=== PATIENT | female | born 1985 | race Caucasian/White ===

== ENCOUNTER 2017-01-09 10:36 | Emergency (ER) | payer SELFPAY ==
[2017-01-09 11:03] VITALS: BP 134/76
--- NOTE | 2017-01-09 11:22 | UC ---
Complaint Female HPI - HPI Summary HPI Summary: low back pain and painful urination for 2 days - History Of Current Complaint Chief Complaint: UCGU Stated Complaint: KIDNEY INFECTION Time Seen by Provider: 01/09/17 11:17 Hx Obtained From: Patient Hx Last Menstrual Period: 12/25/16 ?: No Onset/Duration: Sudden Onset, Lasting Days - 2, Still Present Timing: Constant Severity Initially: Moderate Severity Currently: Moderate Character: Burning Aggravating Factor(s): Urination Alleviating Factor(s): Nothing Associated Signs And Symptoms: Positive: Negative - Allergies/Home Medications Allergies/Adverse Reactions: Allergies Allergy/AdvReac Type Severity Reaction Status Date / Time Sulfamethoxazole Allergy Intermediate Hives Verified 02/25/16 11:56 w/Trimethoprim [From Bactrim] Ciprofloxacin [From Cipro] Allergy Vomiting Verified 02/25/16 11:56 PMH/Surg Hx/FS Hx/Imm Hx Previously Healthy: Yes - Surgical History Surgical History: Yes Surgery Procedure, Year, and Place: TOOTH EXTRACTION Other Surgical History: Dad had Hep C, she has been tested and negative. - Family History Known Family History: Negative: Cardiac Disease, Hypertension, Diabetes - Social History Lives: With Family Alcohol Use: Rare Substance Use Type: None Smoking Status (MU): Light Every Day Tobacco Smoker Type: Cigarettes Amount Used/How Often: LESS THAN 1/2 PPD Length of Time of Smoking/Using Tobacco: 15 YEARS Have You Smoked in the Last Year: Yes Household Exposure Type: Cigarettes - Immunization History Most Recent Influenza Vaccination: 2012 Most Recent Tetanus Shot: UTD Most Recent Pneumonia Vaccination: none Review of Systems Constitutional: Negative Skin: Negative Eyes: Negative ENT: Negative Respiratory: Negative Cardiovascular: Negative Gastrointestinal: Negative, Abdominal Pain Genitourinary: Negative Motor: Negative Neurovascular: Negative Musculoskeletal: Negative Neurological: Negative Psychological: Negative All Other Systems Reviewed And Are Negative: Yes Physical Exam Triage Information Reviewed: Yes Appearance: Well-Appearing, No Pain Distress, Well-Nourished Vital Signs: Initial Vital Signs Temp 97.2 F 01/09/17 10:57 Pulse 78 01/09/17 10:57 Resp 17 01/09/17 10:57 BP 134/76 01/09/17 10:57 Pulse Ox 100 01/09/17 10:57 Vital Signs Reviewed: Yes Eye Exam: Normal Eyes: Positive: Conjunctiva Clear ENT Exam: Normal ENT: Positive: Normal ENT inspection, Hearing grossly normal. Negative: Nasal congestion, Nasal drainage, Trismus, Muffled/hoarse voice Dental Exam: Normal Neck exam: Normal Neck: Positive: Supple, Nontender, No Lymphadenopathy Respiratory Exam: Normal Respiratory: Positive: Chest non-tender, Lungs clear, Normal breath sounds, No respiratory distress, No accessory muscle use Cardiovascular Exam: Normal Cardiovascular: Positive: RRR, No Murmur, Pulses Normal, Brisk Capillary Refill Abdominal Exam: Normal Abdomen Description: Positive: No Organomegaly, Soft, Other: - suprapublic discomfort Bowel Sounds: Positive: Present Musculoskeletal Exam: Normal Musculoskeletal: Positive: Strength Intact, ROM Intact, No Edema Neurological Exam: Normal Neurological: Positive: Alert, Muscle Tone Normal Psychological Exam: Normal Psychological: Positive: Normal Response To Family Skin Exam: Normal Skin: Positive: rashes Diagnostics - Laboratory ABG Interpretation: UA with leuks and blood - nitrites Complaint Female Dx - Course Course Of Treatment: culture urine, keflex po bid, follow with pcp - Differential Dx/Diagnosis Differential Diagnosis/HQI/PQRI: Pelvic Inflammatory Disease, , Renal Colic, Retained Foreign Body, Urinary Tract Infection Provider Diagnoses: UTI Discharge - Discharge Plan Condition: Stable Disposition: HOME Prescriptions: Cephalexin CAP* [Keflex CAP*] 500 mg PO BID #20 cap Patient Education Materials: Phenazopyridine (By mouth), Probiotic (By mouth), Urinary Tract Infection in Women (ED) Referrals: [facility] [Outside] - 1 Week
== END 2017-01-09 11:51 | disposition home or self-care (01) ==
LOC: UCEAST 10:36
DX: N39.0 Urinary tract infection, site not specified (principal)
CPT/HCPCS: 81003; 84702; 87086; 99212; G0463

== ENCOUNTER 2017-03-24 19:42 | Emergency (ER) | payer SELFPAY ==
[2017-03-24 19:48] VITALS: BP 107/75
--- NOTE | 2017-03-24 20:17 | UC ---
Skin Complaint HPI - HPI Summary HPI Summary: 32 YEAR OLD FEMALE PRESENTS WITH COMPLAINS OF EXCORIATION OF RIGHT MIDDLE FINGER - History of Current Complaint Chief Complaint: UCSkin Time Seen by Provider: 03/24/17 20:12 Stated Complaint: RASH ON RIGHT FINGER Hx Obtained From: Patient Hx Last Menstrual Period: 03/21/17 Onset/Duration: Gradual Onset Onset Severity: Moderate Current Severity: Moderate - Allergy/Home Medications Allergies/Adverse Reactions: Allergies Allergy/AdvReac Type Severity Reaction Status Date / Time Sulfamethoxazole Allergy Intermediate Hives Verified 03/24/17 19:44 w/Trimethoprim [From Bactrim] Ciprofloxacin [From Cipro] Allergy Vomiting Verified 03/24/17 19:44 Review of Systems Constitutional: Negative Skin: Rash Eyes: Negative ENT: Negative Respiratory: Negative Cardiovascular: Negative Gastrointestinal: Negative Genitourinary: Negative Motor: Negative Neurovascular: Negative Musculoskeletal: Negative Neurological: Negative Psychological: Negative All Other Systems Reviewed And Are Negative: Yes PMH/Surg Hx/FS Hx/Imm Hx Previously Healthy: Yes - Surgical History Surgical History: Yes Surgery Procedure, Year, and Place: TOOTH EXTRACTION Other Surgical History: Dad had Hep C, she has been tested and negative. - Family History Known Family History: Negative: Cardiac Disease, Hypertension, Diabetes - Social History Alcohol Use: Rare Substance Use Type: None Smoking Status (MU): Light Every Day Tobacco Smoker Type: Cigarettes Amount Used/How Often: LESS THAN 1/2 PPD Length of Time of Smoking/Using Tobacco: 15 YEARS Have You Smoked in the Last Year: Yes Household Exposure Type: Cigarettes - Immunization History Most Recent Influenza Vaccination: 2012 Most Recent Tetanus Shot: UTD Most Recent Pneumonia Vaccination: none Physical Exam Triage Information Reviewed: Yes Vital Signs: Initial Vital Signs Temp 36.6 C 03/24/17 19:45 Pulse 80 03/24/17 19:45 Resp 17 03/24/17 19:45 BP 107/75 03/24/17 19:45 Pulse Ox 100 03/24/17 19:45 Eye Exam: Normal ENT Exam: Normal Dental Exam: Normal Neck exam: Normal Neck: Positive: 1 Respiratory Exam: Normal Cardiovascular Exam: Normal Abdominal Exam: Normal Musculoskeletal Exam: Normal Neurological Exam: Normal Psychological Exam: Normal Skin: Positive: rashes Course/Dx - Diagnoses Provider Diagnoses: RIGHT MIDDLE FINGER CONTACT DERMATITIS Discharge - Discharge Plan Condition: Stable Disposition: HOME Prescriptions: Amoxicillin/Clavulanate TAB* [Augmentin TAB 875*] 875 mg PO BID #20 tab Mupirocin 2% OINT* [Bactroban 2 % Oint*] 1 applic TOPICAL BID #1 tube Patient Education Materials: Dermatitis (ED) Referrals: No Primary Care Phys,NOPCP [Primary Care Provider] - Craisa Abernathy [Medical Doctor] -
[2017-03-24] MEDS ORDERED: Amoxicillin/Clavulanate TAB* 875 MG PO ONE (20:36)
== END 2017-03-24 20:40 | disposition home or self-care (01) ==
LOC: UCEAST 19:42
DX: L25.9 Unspecified contact dermatitis, unspecified cause (principal); Z88.3 Allergy status to other anti-infective agents; F17.210 Nicotine dependence, cigarettes, uncomplicated
CPT/HCPCS: 99212; G0463

== ENCOUNTER 2018-01-28 11:52 | Emergency (ER) | payer SELFPAY ==
[2018-01-28 12:35] VITALS: BP 128/92
--- NOTE | 2018-01-28 13:37 | UC ---
Complaint Female HPI - HPI Summary HPI Summary: 32 yo female presents with passing vaginal clots noticed this morning. She tells me that this morning she woke with lower abdominal cramping and nausea. Subsequently noticed one clump of blood clots pass through her vagina. This made her very anxious. She says that her periods are usually erratic and she is not regular. Her LMP was 7/4. Her last sexual activity was 5 days ago and unprotected. She had some mild pain and bleeding at that time. She is not on any control. Since this morning and waiting in the waiting room/exam room , pt says her abdominal pain and nausea has resolved. No hx of ovarian cyst, ectopic, or uterine abnormalities. Currently denies fever, chills, SOB, chest pain, abdominal pain, n/v/d/c, vaginal discharge. - History Of Current Complaint Chief Complaint: UCGeneralIllness Stated Complaint: ABD PAIN NAUSEA AND PERSONAL Time Seen by Provider: 01/28/18 13:37 Hx Obtained From: Patient Hx Last Menstrual Period: 01/26/18 Onset/Duration: Sudden Onset Severity Initially: Mild Severity Currently: Mild Pain Intensity: 2 Pain Scale Used: 0-10 Numeric - Allergies/Home Medications Allergies/Adverse Reactions: Allergies Allergy/AdvReac Type Severity Reaction Status Date / Time ciprofloxacin [From Cipro] Allergy trouble Verified 01/28/18 12:36 breathing sulfamethoxazole Allergy anaph Verified 01/28/18 12:36 [From Bactrim] trimethoprim [From Bactrim] Allergy anaph Verified 01/28/18 12:36 Home Medications: Home Medications NK [No Home Medications Reported] 01/28/18 [History Confirmed 01/28/18] PMH/Surg Hx/FS Hx/Imm Hx - Additional Past Medical History Additional PMH: None - Surgical History Surgical History: Yes Surgery Procedure, Year, and Place: TOOTH EXTRACTION Other Surgical History: Dad had Hep C, she has been tested and negative. - Family History Known Family History: Negative: Cardiac Disease, Hypertension, Diabetes - Social History Occupation: Employed Full-time Lives: With Family Alcohol Use: Rare Substance Use Type: None Smoking Status (MU): Light Every Day Tobacco Smoker Type: Cigarettes Amount Used/How Often: LESS THAN 1/2 PPD Length of Time of Smoking/Using Tobacco: 15 YEARS Have You Smoked in the Last Year: Yes Household Exposure Type: Cigarettes - Immunization History Most Recent Influenza Vaccination: 2012 Most Recent Tetanus Shot: UTD Most Recent Pneumonia Vaccination: none Review of Systems Constitutional: Negative Skin: Negative Respiratory: Negative Cardiovascular: Negative Gastrointestinal: Abdominal Pain Genitourinary: Abnormal Bleeding Motor: Negative Neurovascular: Negative Neurological: Negative Psychological: Negative All Other Systems Reviewed And Are Negative: Yes Physical Exam - Summary Physical Exam Summary: GENERAL: NAD. WDWN. No pain distress. SKIN: No rashes, sores, lesions, or open wounds. NECK: Supple. Nontender. No lymphadenopathy. CHEST: CTAB. No r/r/w. No accessory muscle use. Breathing comfortably and in no distress. CV: RRR. Without m/r/g. Pulses intact. Brisk cap refill. ABDOMEN: Soft. NTTP. No distention or guarding. No CVA tenderness. Bowel sounds present NEURO: Alert. CN II-XII grossly intact. PSYCH: Age appropriate behavior. Triage Information Reviewed: Yes Vital Signs: Initial Vital Signs Temp 98 F 01/28/18 12:31 Pulse 88 01/28/18 12:31 Resp 16 01/28/18 12:31 BP 128/92 01/28/18 12:31 Pulse Ox 100 01/28/18 12:31 Laboratory Tests 01/28/18 01/28/18 13:42 13:44 POC Urine Color Yellow POC Urine Clarity Slightly cloudy POC Urine pH 5.5 POC Ur Specif [place] >= 1.030 POC Urine Protein Negative POC Ur Glucose (UA) Negative POC Urine Ketones 1+ A POC Urine Blood 3+ A POC Urine Nitrite Negative POC Urine Bilirubin Negative POC Urine Urobilinogen 0.2 POC U Leukocyte Esteras Negative POC Ur Test Negative Vital Signs Reviewed: Yes Complaint Female Dx - Course Course Of Treatment: Pt declined pelvic exam. Transvaginal US: IMPRESSION: FUNCTIONAL CYST LEFT OVARY, OTHERWISE NEGATIVE. UA with blood and negative. I suspect this may be her monthly menstural cycle, but is irregular this time resulting in passage of a clot. She is followed by Dr. Skelton for OBGYN - I have advised her to schedule a follow up appointment as soon as possible. Go to ED if symptoms return or new symptoms develop. Draw for CBC and CMP. Pt was agreeable to this plan. - Differential Dx/Diagnosis Provider Diagnoses: Abnormal uterine bleeding Discharge - Sign-Out/Discharge Documenting (check all that apply): Patient Departure - Discharge Plan Condition: Stable Disposition: HOME Patient Education Materials: Dysmenorrhea (ED), Ovarian Cyst (ED) Referrals: No Primary Care Phys,NOPCP [Primary Care Provider] - Corey Skelton MD [Medical Doctor] - As Soon As Possible Additional Instructions: If you develop a fever, shortness of breath, chest pain, new or worsening symptoms - please call your PCP or go to the ED. Your blood pressure was high at todays visit. Please see your primary provider within 4 weeks for recheck and re-evaluation. 1) Please schedule a follow up with OBGYN as soon as possible - Billing Disposition and Condition Condition: STABLE Disposition: Home
--- NOTE | 2018-01-28 14:39 | RAD ---
INDICATION: Dysfunctional uterine bleeding COMPARISON: None TECHNIQUE: Longitudinal and transverse transvaginal scans of the pelvis were obtained. FINDINGS: Uterus: The uterus is normal in size. There are no focal masses. The uterus measures 7.8 x 3.6 x 4.4 cm. Endometrial thickness: The endometrial thickness is measured at 0.7 cm. . Free fluid: There is no significant free fluid . Ovaries: The ovaries are normal in size. The right ovary measures 3.3 x 1.4 x 1.7 cm. The left ovary measures 4.2 x 1.9 x 3.1 cm. There is left-sided cyst measuring 1.7 x 1.6 x 1.6 was consistent with a functional cyst. Doppler interrogation demonstrates flow to each ovary. Other: None IMPRESSION: FUNCTIONAL CYST LEFT OVARY, OTHERWISE NEGATIVE.
[2018-01-28 19:30] LABS: ABS Basophils 0.1 10^3/ul (0-0.2); ABS Eosinophils 0 10^3/ul (0-0.6); ABS Lymphocytes 1.4 10^3/ul (1.0-4.8); ABS Monocytes 0.5 10^3/ul (0-0.8); ABS Neutrophils 6.3 10^3/ul (1.5-7.7); ABS Nucleated RBC 0 10^3/ul; Eosinophil % 0.4 % (0-6); Hematocrit 42 % (35-47); Hemoglobin 14.7 g/dl (12.0-16.0); Lymphocyte % 16.3 % (25-47); Mean Corpuscular HGB Conc 35 g/dl (31-36); Mean Corpuscular Hemoglobin 31 pg (27-31); Mean Corpuscular Volume 88 fL (80-97); Nucleated Red Blood Cells % 0.3; Platelet Count 319 10^3/ul (150-450); Red Blood Count 4.83 10^6/ul (4.00-5.40); Red Cell Distribution Width 13 % (10.5-15); White Blood Count 8.3 10^3/ul (3.5-10.8)
[2018-01-28 19:44] LABS: EGFR Non-African American 100.8 (>60)
== END 2018-01-28 15:20 | disposition home or self-care (01) ==
LOC: UCEAST 11:52
DX: N93.9 Abnormal uterine and vaginal bleeding, unspecified (principal); Z32.02 Encounter for pregnancy test, result negative; Z88.1 Allergy status to other antibiotic agents; Z88.2 Allergy status to sulfonamides; F17.210 Nicotine dependence, cigarettes, uncomplicated
CPT/HCPCS: 36415; 76830; 80053; 81003; 84702; 85025; 99211; G0463

== ENCOUNTER → 2018-06-19 17:22 | Emergency (ER) | payer MEDICAID, OTHER ==
--- NOTE | 2018-06-19 17:54 | ED ---
Dizziness - HPI Summary HPI Summary: 33 year old female at 15 weeks states every time she moves quickly or stands up too quickly. She feels like she passed out. States occasionally has nausea with it. No chest pain or shortness of breath. No abdominal pain. No vaginal bleeding. No cramping. She hasn't tried taking for symptoms. States she gets a heart murmur when she is so she has a follow up with cardiology in a couple weeks. has had a normal appetite. no current dizziness. states symptoms only occur with movement. states that it is a feeling of lightheadedness and not vertigo. - History Of Current Complaint Chief Complaint: EDDizziness Stated Complaint: DIZZINESS Time Seen by Provider: 06/19/18 17:34 - Allergies/Home Medications Allergies/Adverse Reactions: Allergies Allergy/AdvReac Type Severity Reaction Status Date / Time ciprofloxacin [From Cipro] Allergy trouble Verified 06/19/18 17:33 breathing sulfamethoxazole Allergy anaph Verified 06/19/18 17:33 [From Bactrim] trimethoprim [From Bactrim] Allergy anaph Verified 06/19/18 17:33 PMH/Surg Hx/FS Hx/Imm Hx Endocrine/Hematology History: Denies: Hx Anticoagulant Therapy Cardiovascular History: Denies: Hx Myocardial Infarction - Surgical History Surgery Procedure, Year, and Place: TOOTH EXTRACTION - Immunization History Date of Tetanus Vaccine: Unknown Infectious Disease History: No Infectious Disease History: Reports: Hx Clostridium Difficile - x2, 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 Denies: Hx Hepatitis, Hx Human Immunodeficiency Virus (HIV), Hx Shingles, Hx Tuberculosis, Hx Known/Suspected VRE, Hx Known/Suspected VRSA, History Other Infectious Disease, Traveled Outside the [place] in Last 30 Days - Family History Known Family History: Negative: Cardiac Disease, Hypertension, Diabetes - Social History Alcohol Use: None Substance Use Type: Reports: None Smoking Status (MU): Light Every Day Tobacco Smoker Type: Cigarettes Amount Used/How Often: LESS THAN 1/2 PPD Length of Time of Smoking/Using Tobacco: 15 YEARS Have You Smoked in the Last Year: Yes Review of Systems Negative: Fever Negative: Chest Pain Negative: Shortness Of Breath Neurological: Other - dizziness with standing All Other Systems Reviewed And Are Negative: Yes Physical Exam Triage Information Reviewed: Yes Vital Signs On Initial Exam: Initial Vitals Temp Pulse Resp BP Pulse Ox 98.4 F 88 18 103/56 98 06/19/18 17:25 06/19/18 17:25 06/19/18 17:25 06/19/18 17:25 06/19/18 17:25 Vital Signs Reviewed: Yes Appearance: Positive: Well-Appearing Skin: Positive: Warm, Dry Head/Face: Positive: Normal Head/Face Inspection Eyes: Positive: Normal, EOMI, BANG, Conjunctiva Clear ENT: Positive: Normal ENT inspection, Pharynx normal, TMs normal Respiratory/Lung Sounds: Positive: Clear to Auscultation, Breath Sounds Present Cardiovascular: Positive: Normal, RRR Abdomen Description: Positive: Nontender, Soft Bowel Sounds: Positive: Present Musculoskeletal: Positive: Normal Neurological: Positive: Sensory/Motor Intact, Alert, Oriented to Person Place, Time, CN Intact II-III Psychiatric: Positive: Normal Diagnostics - Vital Signs Vital Signs Temp Pulse Resp BP Pulse Ox 06/19/18 17:25 98.4 F 88 18 103/56 98 - Laboratory Result Diagrams: 06/19/18 17:52 06/19/18 17:52 Lab Statement: Any lab studies that have been ordered have been reviewed, and results considered in the medical decision making process. - EKG No standard instances Cardiac Rate: NL EKG Rhythm: Sinus Rhythm Summary of EKG Findings: sinus rhythm Re-Evaluation - Re-Evaluation First Eval Re-Evaluation Time: 18:52 Comment: no symptoms, was not dizzy upon standing with orthostatic vitals, diastolic does drop by 10 so is orthostatic but is not symptomatic from it at this time Second Eval Comment: still asx Dizzy Course/Dx - Course Course Of Treatment: 33 year old female at 15 weeks states every time she moves quickly or stands up too quickly. She feels like she passed out. States occasionally has nausea with it. No chest pain or shortness of breath. No abdominal pain. No vaginal bleeding. No cramping. She hasn't tried taking for symptoms. States she gets a heart murmur when she is so she has a follow up with cardiology in a couple weeks. has had a normal appetite. no current dizziness. states symptoms only occur with movement. states that it is a feeling of lightheadedness and not vertigo. on exam normal physical exam. vitals is orthostatic by diastolic number but patient is asx. ekg sinus rhythm. told to keep follow up with cardiology. encourage to eat salty foods to raise blood pressure. patient understand and agrees with plan. - Diagnoses Differential Diagnosis/HQI/PQRI: Dysrhythmia, Hypovolemia, Metabolic Abnormality Provider Diagnoses: Dizziness Discharge - Sign-Out/Discharge Documenting (check all that apply): Patient Departure - Discharge Plan Condition: Good Disposition: HOME Patient Education Materials: Lightheadedness (ED) Referrals: No Primary Care Phys,NOPCP [Primary Care Provider] - Additional Instructions: keep follow up with cardiology as scheduled drink plenty of fluids eat salty snacks Follow up with ob Return to ED if develop any new or worsening symptoms - Billing Disposition and Condition Condition: GOOD Disposition: Home
[2018-06-19 18:05] LABS: ABS Basophils 0 10^3/ul (0-0.2); ABS Eosinophils 0.1 10^3/ul (0-0.6); ABS Lymphocytes 1.2 10^3/ul (1.0-4.8); ABS Monocytes 0.4 10^3/ul (0-0.8); ABS Neutrophils 6.6 10^3/ul (1.5-7.7); ABS Nucleated RBC 0 10^3/ul; Eosinophil % 0.7 %; Hematocrit 36 % (35-47); Hemoglobin 12.4 g/dl (12.0-16.0); Lymphocyte % 14.3 %; Mean Corpuscular HGB Conc 35 g/dl (31-36); Mean Corpuscular Hemoglobin 30 pg (27-31); Mean Corpuscular Volume 85 fL (80-97); Mean Platelet Volume 7.8 fL (7.4-10.4); Nucleated Red Blood Cells % 0; Platelet Count 251 10^3/ul (150-450); Red Blood Count 4.17 10^6/ul (4.00-5.40); Red Cell Distribution Width 13 % (10.5-15); White Blood Count 8.3 10^3/ul (3.5-10.8)
[2018-06-19 18:20] LABS: Albumin 4.5 g/dL (3.2-5.2); Albumin/Globulin Ratio 1.6 (1-3); Calcium 9.9 mg/dL (8.6-10.3); EGFR Non-African American 120.7 (>60); Globulin 2.9 g/dL (2-4); Magnesium 1.8 mg/dL (1.9-2.7); Potassium 4.2 mmol/L (3.5-5.0); Total Bilirubin 0.5 mg/dL (0.2-1.0); Total Protein 7.4 g/dL (6.4-8.9)
[2018-06-19 18:41] LABS: Urine Appearance Turbid; Urine Bacteria Absent (Absent); Urine Bilirubin Negative (Negative); Urine Blood Negative (Negative); Urine Color Yellow; Urine Glucose Negative (Negative); Urine Ketones Negative (Negative); Urine Nitrite Negative (Negative); Urine Protein Negative (Negative); Urine Red Blood Cell Trace(0-2/hpf) (Absent); Urine Specific Gravity 1.014 (1.010-1.030); Urine Urobilinogen Negative (Negative); Urine White Blood Cell Trace(0-5/hpf) (Absent)
[2018-06-19] MEDS: NS 0.9% 1000 ML* 1,000 ML IV ONE (18:42)
[2018-06-19 18:48] LABS: TSH (Thyroid Stimulating Horm) 1.58 mcIU/mL (0.34-5.60)
[2018-06-19] MEDS: Magnesium Chloride EC TAB* 64 MG PO ONE (19:11)
[2018-06-19 19:17] VITALS: BP 112/70
== END | disposition home or self-care (01) ==
LOC: ED 17:22
DX: O26.892 Other specified pregnancy related conditions, second trimester (principal); R42 Dizziness and giddiness; Z3A.15 15 weeks gestation of pregnancy
CPT/HCPCS: 36415; 80053; 81003; 81015; 83605; 83735; 84443; 84484; 85025; 87086; 93005; 96360; 99282; A9270-GY

== ENCOUNTER 2018-07-18 08:25 | Emergency (ER) | payer OTHER ==
[2018-07-18] MEDS ORDERED: NS 0.9% 1000 ML** 1,000 ML IV ONE (08:36)
[2018-07-18 08:59] LABS: ABS Basophils 0 10^3/ul (0-0.2); ABS Eosinophils 0.1 10^3/ul (0-0.6); ABS Lymphocytes 0.8 10^3/ul (1.0-4.8); ABS Monocytes 0.3 10^3/ul (0-0.8); ABS Neutrophils 5.9 10^3/ul (1.5-7.7); ABS Nucleated RBC 0 10^3/ul; Eosinophil % 0.8 %; Hematocrit 31 % (35-47); Hemoglobin 10.9 g/dl (12.0-16.0); Mean Corpuscular HGB Conc 36 g/dl (31-36); Mean Corpuscular Hemoglobin 31 pg (27-31); Mean Corpuscular Volume 86 fL (80-97); Mean Platelet Volume 7.7 fL (7.4-10.4); Nucleated Red Blood Cells % 0; Platelet Count 208 10^3/ul (150-450); Red Blood Count 3.56 10^6/ul (4.00-5.40); Red Cell Distribution Width 14 % (10.5-15); White Blood Count 7.1 10^3/ul (3.5-10.8)
--- OUTSIDE RECORDS SUMMARY | 2018-07-18 09:00 | XMS REPORT | Continuity of Care Document ---
:1985 External Reference #:[id number] Author Name Isidra Pfeiffer Care Team Providers Name Role Phone Andrés Godinez M.D. 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 Payers Type Date Identification Numbers Payment Provider Subscriber Policy Number: [id number] Aron Gonzales PayID: [id number] [address] [place] [address] Expires: 2014 Policy Number: [employer] Karli Gonzales [id number] PayID: [id number] [address] [address] [place] [address] Advance Directives Description No Information Available Problems Description No Information Family History Description No Information Available Social History Type Date Description Comments Sex Unknown Occupation [employer] ETOH Use Denies alcohol use Tobacco Use Start: Unknown Light tobacco smoker (10 or fewer cigarettes/day) Allergies, Adverse Reactions, Alerts Description No Information Medications Medication Date Status Form Strength Qnty SIG Indications Ordering Provider Cranberry 00 Active Capsules 1 by Unknown Concentrate 00 mouth every day Active Capsules 1 cap by Unknown Vitamin 00 mouth daily Immunizations Description No Information Available Vital Signs Description No Information Available Results Description No Information Available Procedures Date Code Description Status 03/25/2014 48259 EKG, Interpretation Only Completed Encounters Type Date Location Provider Dx Diagnosis Office Visit 03/25/2014 [facility] Baljit Moses, 008.45 Clostridium 8:47p margaret Quarles M.D. Difficile Hospitalists 787.01 Nausea W/ Vomiting 599.0 UTI Urinary Tract Infection Site Not Spec 276.8 Hypopotassemia Office Visit 03/24/2014 8:46p [place] Linda Smiley 008.45 Clostridium margaret Quarles M.D. Difficile Hospitalists 787.01 Nausea W/ Vomiting 599.0 UTI Urinary Tract Infection Site Not Spec 276.8 Hypopotassemia Office Visit 03/23/2014 8:45p [facility] Baljit 008.45 Clostridium Assoc,margaret Moses M.D. Difficile Hospitalists 599.0 UTI Urinary Tract Infection Site Not Spec 787.01 Nausea W/ Vomiting 276.8 Hypopotassemia Office Visit 01/25/2014 [facility] Blake 558.9 Gastroenteritis & 3:12p Assocmargaret N.P. Colitis Hospitalists Noninfectious Other 276.8 Hypopotassemia 276.51 Dehydration Plan of Treatment No Information Available
--- OUTSIDE RECORDS SUMMARY | 2018-07-18 09:00 | XMS REPORT | Continuity of Care Document ---
:1985 External Reference #:[id number] Author Name Leigh Mccall Care Team Providers Name Role Phone Patient's Choice Primary Care Physician Unavailable Payers Type Date Identification Numbers Payment Provider Subscriber Policy Number: [id number] Aronrichard Gonzales PayID: [id number] [address] [place] [address] Expires: 2014 Policy Number: [employer] Karli Gonzales [id number] PayID: [id number] [address] [address] [place] [address] Advance Directives Description No Information Available Problems Description No Information Family History Date Family Member(s) Problem(s) Comments General Breast Cancer Mother Hypertension Siblings 2 Social History Type Date Description Comments Sex Unknown Marital Status Single Lives With Boyfriend 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 [employer] ETOH Use Denies alcohol use Tobacco Use Start: Unknown Light tobacco smoker (10 or fewer cigarettes/day) Recreational Drug Use Denies Drug Use Smoking Status Reviewed: 07/07/18 Light tobacco smoker (10 or fewer cigarettes/day) Exercise Type/Frequency Does not exercise Allergies, Adverse Reactions, Alerts Date Description Reaction Status Severity Comments 07/07/2018 Sulfa Antibiotics Active Hives, Nausea 07/07/2018 Bactrim Active Hives and Nausea Medications Medication Date Status Form Strength Qnty SIG Indications Ordering Provider Cranberry Active Capsules 1 by mouth Unknown Concentrate 000 every day Active Capsules 1 cap by Unknown Vitamin 000 mouth daily Fish Oil Active Capsules 600mg 1 tab by Unknown 000 mouth every morning Magnesium Oxide Active Capsules 400mg 1 by mouth Unknown -MG Supplement 000 every day Immunizations Description No Information Available Vital Signs Date Vital Result Comment 07/07/2018 8:35am Height 61 inches 5'1" Weight 123.38 lb Heart Rate 64 /min BP Systolic Sitting 116 mmHg BP Diastolic Sitting 70 mmHg BMI (Body Mass Index) 23.3 kg/m2 Results Description No Information Available Procedures Date Code Description Status 07/07/2018 93005 EKG Tracing & Interpretation Completed 03/25/2014 51005 EKG, Interpretation Only Completed Encounters Type Date Location Provider Dx Diagnosis Office Visit 03/25/2014 [facility] Josué, 008.45 Clostridium 8:47p margaret Quarles M.D. Difficile Hospitalists 787.01 Nausea W/ Vomiting 599.0 UTI Urinary Tract Infection Site Not Spec 276.8 Hypopotassemia Office Visit 03/24/2014 8:46p [facility] Baljit 008.45 Clostridium margaret Quarles M.D. Difficile Hospitalists 787.01 Nausea W/ Vomiting 599.0 UTI Urinary Tract Infection Site Not Spec 276.8 Hypopotassemia Office Visit 03/23/2014 8:45p [facility] Baljit 008.45 Clostridium margaret Quarles M.D. Difficile Hospitalists 599.0 UTI Urinary Tract Infection Site Not Spec 787.01 Nausea W/ Vomiting 276.8 Hypopotassemia Office Visit 01/25/2014 [facility] Blake 558.9 Gastroenteritis & 3:12p margaret Quarles N.PAnjum Colitis Hospitalists Noninfectious Other 276.8 Hypopotassemia 276.51 Dehydration Plan of Treatment Future Appointment(s):07/21/2018 8:30 am - Nurse Visit cc at [facility]07/20/2018 10:00 am - Nurse Visit cc at [facility]07/22/2018 8 :00 am - Corinne ECHO Schedule at [facility]07/07/2018 - Corwin Holder M.D.R11.2 Nausea with vomiting, [id number] Cardiac murmur, unspecifiedNew Orders:Echocardiogram, Scheduled: 07/22/18Follow up:please obtain old echo/consult from [facility] 2010. 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
[2018-07-18 09:07] VITALS: BP 91/62
--- NOTE | 2018-07-18 09:11 | ED ---
Syncope/Near Syncope - HPI Summary HPI Summary: A 33 y/o female brought in by ambulance presents to the ED c/o syncope. Currently, the patient fees fine and has no pain distress In the ED room, the patient has a pulse of 78 BPM, O2 saturation of 100%, and blood pressure of 98/ 65. According to the patient, she had LOC at work. She stated that she doesn't remember much, but does remember feeling dizzy and lightheaded. She noted that she knew that she needed to sit down and she did. Patient denies any abdominal pain/cramping, vaginal discharge or vaginal bleeding. The patient has on the floor when she had the syncopal episode. - History Of Current Complaint Chief Complaint: EDSyncope Time Seen by Provider: 07/18/18 08:36 Hx Obtained From: Patient Onset/Duration: Sudden Onset, Lasting Minutes, Resolved Timing: Intermittent Episode Lasting Context: Witnessed Activity At Onset: At Rest Associated Head Trauma: No Aggravating Factor(s): Nothing Alleviating Factor(s): Nothing Associated Signs And Symptoms: Dizzy, Lightheadedness - Allergies/Home Medications Allergies/Adverse Reactions: Allergies Allergy/AdvReac Type Severity Reaction Status Date / Time ciprofloxacin [From Cipro] Allergy trouble Verified 07/18/18 08:32 breathing sulfamethoxazole Allergy anaph Verified 07/18/18 08:32 [From Bactrim] trimethoprim [From Bactrim] Allergy anaph Verified 07/18/18 08:32 PMH/Surg Hx/FS Hx/Imm Hx Endocrine/Hematology History: Denies: Hx Anticoagulant Therapy Cardiovascular History: Denies: Hx Myocardial Infarction - Surgical History Surgery Procedure, Year, and Place: TOOTH EXTRACTION - Immunization History Date of Tetanus Vaccine: Unknown Infectious Disease History: No Infectious Disease History: Reports: Hx Clostridium Difficile - x2, 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 Denies: Hx Hepatitis, Hx Human Immunodeficiency Virus (HIV), Hx Shingles, Hx Tuberculosis, Hx Known/Suspected VRE, Hx Known/Suspected VRSA, History Other Infectious Disease, Traveled Outside the [place] in Last 30 Days - Family History Known Family History: Negative: Cardiac Disease, Hypertension, Diabetes - Social History Alcohol Use: None Substance Use Type: Reports: None Smoking Status (MU): Light Every Day Tobacco Smoker Type: Cigarettes Amount Used/How Often: LESS THAN 1/2 PPD Length of Time of Smoking/Using Tobacco: 15 YEARS Have You Smoked in the Last Year: Yes Review of Systems Negative: Fever Negative: Abdominal Pain Positive: other - negative: bleeding. Negative: discharge Neurological: Other - positive: dizziness and lightheadedness Positive: Syncope All Other Systems Reviewed And Are Negative: Yes Physical Exam - Summary Physical Exam Summary: VITAL SIGNS: Reviewed. GENERAL: Patient is a well-developed and nourished female who is lying comfortable in the stretcher. Patient is not in any acute respiratory distress. HEAD AND FACE: No signs of trauma. No ecchymosis, hematomas or skull depressions. No sinus tenderness. EYES: PERRLA, EOMI x 2, No injected conjunctiva, no nystagmus. EARS: Hearing grossly intact. Ear canals and tympanic membranes are within normal limits. MOUTH: Oropharynx within normal limits. NECK: Supple, trachea is midline, no adenopathy, no JVD, no carotid bruit, no c- spine tenderness, neck with full ROM. CHEST: Symmetric, no tenderness at palpation LUNGS: Clear to auscultation bilaterally. No wheezing or crackles. CVS: Regular rate and rhythm, S1 and S2 present, no murmurs or gallops appreciated. ABDOMEN: Soft, non-tender. No rebound no guarding, and no masses palpated. Bowel sounds are normal. Abdomen is distended above umbilical secondary to . EXTREMITIES: FROM in all major joints, no edema, no cyanosis or clubbing. NEURO: Alert and oriented x 3. No acute neurological deficits. Speech is normal and follows commands. SKIN: Dry and warm Triage Information Reviewed: Yes Vital Signs On Initial Exam: Initial Vitals Temp Pulse Resp BP Pulse Ox 98.8 F 77 16 98/65 99 07/18/18 08:31 07/18/18 08:31 07/18/18 08:31 07/18/18 08:31 07/18/18 08:31 Vital Signs Reviewed: Yes Diagnostics - Vital Signs Vital Signs Temp Pulse Resp BP Pulse Ox 07/18/18 09:01 76 91/62 100 07/18/18 09:00 72 100 07/18/18 08:31 98.8 F 79 16 98/65 99 - Laboratory Lab Results: Lab Results 07/18/18 07/18/18 Range/Units 07:55 07:55 WBC 7.1 (3.5-10.8) 10^3/ul RBC 3.56 L (4.00-5.40) 10^6/ul Hgb 10.9 L (12.0-16.0) g/dl Hct 31 L (35-47) % MCV 86 (80-97) fL MCH 31 (27-31) pg MCHC 36 (31-36) g/dl RDW 14 (10.5-15) % Plt Count 208 (150-450) 10^3/ul MPV 7.7 (7.4-10.4) fL Neut % (Auto) 82.8 % Lymph % (Auto) 11.0 % [place] % (Auto) 4.8 % Eos % (Auto) 0.8 % Baso % (Auto) 0.6 % Absolute Neuts (auto) 5.9 (1.5-7.7) 10^3/ul Absolute Lymphs (auto) 0.8 L (1.0-4.8) 10^3/ul Absolute Monos (auto) 0.3 (0-0.8) 10^3/ul Absolute Eos (auto) 0.1 (0-0.6) 10^3/ul Absolute Basos (auto) 0 (0-0.2) 10^3/ul Absolute Nucleated RBC 0 10^3/ul Nucleated RBC % 0 Blood Type Pending Antibody Screen Pending Result Diagrams: 07/18/18 07:55 07/18/18 07:55 Lab Statement: Any lab studies that have been ordered have been reviewed, and results considered in the medical decision making process. - EKG 0839 Cardiac Rate: NL - 77 BPM EKG Rhythm: Sinus Rhythm - 77 BPM Summary of EKG Findings: no ST elevation, normal axis. Course/Dx Assessment/Plan: A 33 y/o female brought in by ambulance presents to the ED c/o syncope. Currently, the patient fees fine and has no pain distress In the ED room, the patient has a pulse of 78 BPM, O2 saturation of 100%, and blood pressure of 98/65. According to the patient, she had LOC at work. She stated that she doesn't remember much, but does remember feeling dizzy and lightheaded. She noted that she knew that she needed to sit down and she did. Patient denies any abdominal pain/cramping, vaginal discharge or vaginal bleeding. The patient was on the floor when she had the syncopal episode. Blood work without any significant abnormality except for slight anemia possibly secondary to her , glucose of 105, calcium and total protein decreased Hagins probably secondary to her . In the ED the patient was hydrated, the patient is eating and drinking without any nausea and vomiting. EKG shows a normal sinus rhythm without any stridor elevations. I discussed all the findings and test results with the patient. Patient was instructed to return to the emergency room immediately if any of the symptoms return or worsens. Plan of care was discussed with the patient and she understands and agrees. All questions were answered at patient satisfaction. There were no further complaints or concerns. Lung exam before discharge: CTA B/ L. Good air exchange. No wheezing or crackles heard. CVS: S1 and S2 present. No murmurs appreciated. Patient is alert and oriented x 3. Patient is hemodynamically stable. Patient will be discharged home with follow up PCP in the next 2-3 days - Diagnoses Provider Diagnoses: , Vasovagal syncope Discharge - Sign-Out/Discharge Documenting (check all that apply): Patient Departure - DISCHARGE - Discharge Plan Condition: Stable Disposition: HOME Patient Education Materials: (ED), Syncope (ED) Forms: *Work Release Referrals: Care [facility] [Outside] - 3 Days [facility]ERR[facility] [Outside] - 3 Days Additional Instructions: FOLLOW UP WITH PRIMARY CARE PROVIDER IN 3 DAYS. FOLLOW UP WITH YOUR INDUCTOR TESTER NEEDED. RETURN TO ED FOR ANY NEW OR WORSENING SYMPTOMS. - Billing Disposition and Condition Condition: STABLE Disposition: Home - Attestation Statements Document Initiated by Gerardo: Yes Documenting Maryibe: Sachin Latham Provider For Whom Gerardo is Documenting (Include Credential): Hector Tapia MD Scribe Attestation: Sachin Lai scribed for Hector Tapia MD on 07/18/18 at 1843. Scribe Documentation Reviewed: Yes Provider Attestation: The documentation as recorded by the Sachin omalley accurately reflects the service I personally performed and the decisions made by me, Hector Tapia MD Status of Scribe Document: Viewed Attestations Scribe Attestation: Sachin Latham User Type: Provider
[2018-07-18 09:20] LABS: Albumin 3.8 g/dL (3.2-5.2); Albumin/Globulin Ratio 1.5 (1-3); Calcium 8.5 mg/dL (8.6-10.3); EGFR African American 169.9 (>60); EGFR Non-African American 140.4 (>60); Globulin 2.5 g/dL (2-4); Potassium 3.7 mmol/L (3.5-5.0); Total Bilirubin 0.4 mg/dL (0.2-1.0); Total Protein 6.3 g/dL (6.4-8.9)
== END 2018-07-18 11:08 | disposition home or self-care (01) ==
LOC: ED 08:25
DX: R55 Syncope and collapse (principal); O26.899 Other specified pregnancy related conditions, unspecified trimester
CPT/HCPCS: 36415; 80053; 85025; 86850; 86900; 86901; 93005; 96360; 96361; 99282

== ENCOUNTER 2018-11-29 15:18 | Inpatient (IN) | payer OTHER ==
[2018-11-29] MEDS ORDERED: Buffered Lidocaine 1% SYRIN* 1 ML/SYRINGE INTRADERM ONE (16:07)
[2018-11-29] MEDS ORDERED: Lactated Ringers 1000 ML Bag* 1,000 ML IV ONE (16:07)
--- NOTE | 2018-11-29 16:18 | HP ---
General Information - Reason for Visit Spontaneous ruptured membranes, GBS culture positive. - General Information Maternal Age: 33 Grav: 2 Para: 1 SAB: 0 IEA: 0 Estimated Due Date: 12/09/18 Determined By: LMP Gestational Age in Weeks/Days: 38 4 Maternal Blood Type and Rh: B Negative - Results this Serology/RPR Result: Non-Reactive Rubella Result: Immune HBsAg Result: Negative HIV Result: Negative GBS Culture Result: Positive Past Medical History Delivery History: See Records - History of hemorrhage Pertinent Past Medical History: See Records Pertinent Past Surgical History: See Records Pertinent Family History: See Records - Antepartal Records Antepartal Records: Reviewed, Complicated by: - Advanced maternal age , GBS positive cultures Review of Systems Constitutional: Comfortable CV Complaint: No Respiratory: Shortness of Breath: No Gastrointestinal: No Nausea/Vomiting, Normal Bowel Movement Genitourinary: Leaking Fluid - Fern positive on microscopy, No Dysuria, No Bleeding Musculoskeletal: No Complaint, No Epigastric Pain Neurological: No Headache, No Visual Changes Movement: Normal Exam Allergies/Adverse Reactions: Allergies ciprofloxacin [From Cipro] Allergy (Verified 11/21/18 10:53) trouble breathing sulfamethoxazole [From Bactrim] Allergy (Verified 11/21/18 10:53) anaph pt states on 09/24/18 she get hives and GI upset trimethoprim [From Bactrim] Allergy (Verified 11/21/18 10:53) anaph pt states on 09/24/18 she get hives and GI upset Temp 98.7 BP 100/70 P 72 RR 18 - Measurements Height: 5 ft 1 in Weight: 126 lb Weight in lbs: 126.592149 Body Mass Index (BMI): 23.8 Pre- Weight: 123 lb Weight Gained This : 3 lbs and 0 ozs - Exam Breast: Breast Exam Deferred CVA: No CVA Tenderness Extremities: No Edema Heart: Normal Rhythm/Heart Sounds HEENT: No Significant Findings Lungs: Clear Bilaterally Rectal: Rectal Exam Deferred Reflexes: DTR 2+ Thyroid: No Thyromegaly - Abdominal Exam Abdomen Exam: Non-Tender, Fundal Height Consistent with Dates - Ultrasound/Biophysical Profile Ultrasound Status: Not Done Targeted Exam Findings See L&D Outpatient Visit Provider Note for Findings: N/A Presenting Part: Vertex Membrane Status: SROM Amniotic Fluid Evaluation: Clear Bleeding/Discharge: None EFM Findings - External Monitor Findings Baseline Heart Rate: 140 External Monitor Findings: Accelerations Present Contractions: None Assessment/Plan - Assessment at 38+ weeks with SROM and GBS culture positive, not in labor. - Obstetrical Risk Factors Obstetrical Risk Factors: GBS Positive, Tobacco Use - Plan Plan: Induction, IV Hydration, Antibiotic Prophylaxis, Admit - Anticipate Vaginal Delivery - Date/Time of Admission Date of Admission: 11/29/18 Time of Admission: 16:00
[2018-11-29] MEDS ORDERED: Penicillin G Potassium IV* 5,000,000 UNITS in NS 0.9% 100 ML* 100 ML IVPB ONE (16:30)
[2018-11-29 16:33] LABS: ABS Lymphocytes 1.5 10^3/ul (1.0-4.8); ABS Monocytes 0.5 10^3/ul (0-0.8); ABS Neutrophils 7.4 10^3/ul (1.5-7.7); Eosinophil % 0.5 %; Hematocrit 34 % (35-47); Hemoglobin 11.9 g/dL (12.0-16.0); Lymphocyte % 16.1 %; Mean Corpuscular HGB Conc 35 g/dL (31-36); Mean Corpuscular Hemoglobin 29 pg (27-31); Mean Corpuscular Volume 84 fL (80-97); Platelet Count 181 10^3/uL (150-450); Red Blood Count 4.05 10^6 /uL (3.70-4.87); Red Cell Distribution Width 14 % (10-15); White Blood Count 9.6 10^3/uL (3.5-10.8)
[2018-11-29 16:56] LABS: Urine Benzodiazepine Screen None Detected (None Detect); Urine Opiates Screen None Detected (None Detect)
[2018-11-29] MEDS ORDERED: Lactated Ringers 1000 ML Bag* 1,000 ML IV SCH (17:00)
[2018-11-29] MEDS ORDERED: Misoprostol TAB* 100 MCG PO ONE (17:00)
[2018-11-29] MEDS: Penicillin G Potassium IV* 2,500,000 UNITS in NS 0.9% 100 ML* 100 ML IVPB SCH (20:58)
[2018-11-29] MEDS ORDERED: Nalbuphine* 10 MG/ML 1 ML VIAL IV PRN (22:07)
[2018-11-29] MEDS ORDERED: Promethazine INJ(RESTRICTED)* 25 MG/ML 1 ML VIAL IV PRN (22:07)
--- NOTE | 2018-11-29 22:12 | PN ---
Progress Note - Progress Note Date of Service: 11/29/18 SOAP: Subjective: Pt reports ctx increasing in intensity. Con't LOF, + bloody show. Pt still coping well and able to speak through contractions. Objective: BP:106/67, P:68, R:20, T:97.4, FHT: 125bpm, + accels, decels, moderate variability, ctx q 2-4 min. Assessment: 33 y.o. , 38w4d, early labor, afebrile Plan: 1. Therapeutic rest 2. Reevaluate in AM or sooner PRN 3. Reviewed R/B of mgmt options and risks associated with SROM and pt agrees with plan to rest.
[2018-11-30] MEDS: Penicillin G Potassium IV* 2,500,000 UNITS in NS 0.9% 100 ML* 100 ML IVPB SCH ×4 (00:55→15:22)
[2018-11-30] MEDS ORDERED: Oxytocin in LR* 20 UNITS/1,000 ML BAG IVPB ONE (05:07)
--- NOTE | 2018-11-30 05:56 | PN ---
Progress Note - Progress Note Date of Service: 11/30/18 SOAP: Subjective: Pt reports contractions are much stronger and requests pain medication. Pt does not want epidural at this time, will try nitrous and hydrotherapy. Objective: BP:119/73, P:57, R:20, T:98.2, FHR: 125, + accels, -decels, moderate variability. Cervix: 5/100/-1. Assessment: 33 y.o. , active labor, GBS + Plan: 1) Reviewed risks versus benefits of pain medications, start nitrous. 2) Encourage position changes for descent 3) Reevaluate PRN
[2018-11-30] MEDS ORDERED: OBEPIDURAL* 250 ML EPIDURAL ONE (06:18)
[2018-11-30] MEDS ORDERED: Lactated Ringers 1000 ML Bag* 1,000 ML IV ONE (06:54)
[2018-11-30] MEDS ORDERED: Lactated Ringers 1000 ML Bag* 500 ML IV PRN ×2 (06:54)
[2018-11-30] MEDS ORDERED: Sodium Citrate/Citric Acid* 15 ML UDC PO PRN (06:54)
[2018-11-30] MEDS ORDERED: Famotidine TAB* 20 MG PO PRN (06:54)
[2018-11-30] MEDS ORDERED: Phenylephrine 40 MCG/ML SYRINGE IV PUSH PRN ×2 (06:54)
[2018-11-30] MEDS ORDERED: Lactated Ringers 1000 ML Bag* 1,000 ML IV SCH ×3 (07:00→12:00)
[2018-11-30] MEDS ORDERED: OBEPIDURAL* 250 ML EPIDURAL SCH (07:00)
[2018-11-30] MEDS ORDERED: Oxytocin in LR* 20 UNITS/1,000 ML BAG IVPB SCH ×2 (09:00→12:00)
[2018-11-30] MEDS ORDERED: Dibucaine 1% 28.35 GM TUBE PR PRN (11:07)
[2018-11-30] MEDS ORDERED: Witch Hazel PAD* JAR TOPICAL PRN (11:07)
[2018-11-30] MEDS ORDERED: Acetaminophen TAB* 325 MG PO PRN (11:07)
[2018-11-30] MEDS ORDERED: Glycerin ADULT SUPP PR PRN (11:07)
[2018-11-30] MEDS ORDERED: Misoprostol TAB* 200 MCG PR ONE (11:07)
--- NOTE | 2018-11-30 11:09 | PROCNOTE ---
[facility] OB: Delivery Note - Delivery A Date of : 11/30/18 Time of : 10:57 Sex: Female Score 1 Minute: 9 Score 5 Minutes: 9 Gestational Age in Weeks and Days at Delivery: 38 Weeks and 5 Days Delivery Method: Spontaneous Vaginal Labor: Induced Amniotic Fluid: Meconium Estimated Blood Loss: 150 Anesthesia/Analgesia: IM/IV, CEI for Labor Delivered By: Geneva Ureña - Nursery Level of Nursery: Regular/Bedside - Perineum Perineal Injury: None/Intact Perineal Repair: None - Events Delivery Events of Note: Pitocin During Labor
[2018-11-30] MEDS ORDERED: Simethicone TAB* 80 MG TAB.CHEW PO SCH (12:30)
[2018-11-30] MEDS: Docusate CAP* 100 MG PO SCH ×2 (14:17→21:27)
[2018-11-30] MEDS: Ibuprofen TAB* 600 MG PO PRN ×2 (15:35→21:28)
[2018-12-01 05:56] LABS: ABS Basophils 0.1 10^3/ul (0-0.2); ABS Eosinophils 0.1 10^3/ul (0-0.6); ABS Lymphocytes 1.4 10^3/ul (1.0-4.8); ABS Monocytes 0.9 10^3/ul (0-0.8); ABS Neutrophils 10.5 10^3/ul (1.5-7.7); Eosinophil % 0.6 %; Hematocrit 32 % (35-47); Hemoglobin 11.1 g/dL (12.0-16.0); Lymphocyte % 11.1 %; Mean Corpuscular HGB Conc 35 g/dL (31-36); Mean Corpuscular Hemoglobin 29 pg (27-31); Mean Corpuscular Volume 84 fL (80-97); Mean Platelet Volume 9.1 fL (7.4-10.4); Nucleated Red Blood Cells % 0.1; Platelet Count 165 10^3/uL (150-450); Red Blood Count 3.81 10^6 /uL (3.70-4.87); Red Cell Distribution Width 14 % (10-15)
[2018-12-01] MEDS: Docusate CAP* 100 MG PO SCH ×3 (07:25→20:32)
[2018-12-01] MEDS: Ibuprofen TAB* 600 MG PO PRN ×2 (07:25→15:34)
[2018-12-01] MEDS ORDERED: Ferrous Gluconate TAB* 324 MG TAB PO SCH (09:00)
[2018-12-02] MEDS: Ibuprofen TAB* 600 MG PO PRN (04:44)
[2018-12-02 07:43] VITALS: BP 93/54
[2018-12-02] MEDS: Docusate CAP* 100 MG PO SCH (08:40)
== END 2018-12-02 10:11 | disposition home or self-care (01) | DRG 560 ==
LOC: MCHOBOUT 15:18 → MCHOB 15:39
PROVIDERS: ADMIT Midwife; ATTEND Midwife
PROC: 4A1HXCZ Monitoring of Products of Conception, Cardiac Rate, External Approach (ICD-10-PCS; 2018-11-29)
PROC: 3E033VJ Introduction of Other Hormone into Peripheral Vein, Percutaneous Approach (ICD-10-PCS; 2018-11-29)
PROC: 10E0XZZ Delivery of Products of Conception, External Approach (ICD-10-PCS; principal; 2018-11-30)
DX: O99.824 Streptococcus B carrier state complicating childbirth (principal); Z37.0 Single live birth; O76 Abnormality in fetal heart rate and rhythm complicating labor and delivery; Z3A.38 38 weeks gestation of pregnancy; Z87.891 Personal history of nicotine dependence; Z88.1 Allergy status to other antibiotic agents; O77.0 Labor and delivery complicated by meconium in amniotic fluid; Z67.21 Type B blood, Rh negative
CPT/HCPCS: 36415; 80307; 85025; 86850; 86870; 86880; 86900; 86901; A9270-GY; J2300; J2540; J2550; S0191

== ENCOUNTER 2018-12-26 19:57 | Emergency (ER) | payer OTHER ==
[2018-12-26 20:18] VITALS: BP 104/70
[2018-12-26] MEDS ORDERED: Amoxicillin PO (*) 500 MG CAP PO ONE (20:45)
--- NOTE | 2018-12-26 20:49 | UC ---
Skin Complaint HPI - HPI Summary HPI Summary: 33 yo female with annular expanding target lesion on her right calf sl pruritis 3 weeks pp and breast feeding - History of Current Complaint Chief Complaint: UCSkin Time Seen by Provider: 12/26/18 20:35 Stated Complaint: BUG BITE Hx Obtained From: Patient Hx Last Menstrual Period: 3 weeks Onset/Duration: Gradual Onset, Lasting Days Timing: Constant Onset Severity: Mild Current Severity: Mild Pain Intensity: 1 Location: Discrete - right calf Character: Pruritus - mild, Redness Aggravating Factor(s): Nothing Alleviating Factor(s): Nothing Associated Signs & Symptoms: Positive: Rash - Allergy/Home Medications Allergies/Adverse Reactions: Allergies Allergy/AdvReac Type Severity Reaction Status Date / Time ciprofloxacin [From Cipro] Allergy trouble Verified 12/26/18 20:18 breathing sulfamethoxazole Allergy anaph Verified 12/26/18 20:18 [From Bactrim] trimethoprim [From Bactrim] Allergy anaph Verified 12/26/18 20:18 PMH/Surg Hx/FS Hx/Imm Hx Previously Healthy: Yes Other History Of: Negative For: Anticoagulant Therapy - Surgical History Surgical History: Yes Surgery Procedure, Year, and Place: TOOTH EXTRACTION Other Surgical History: Dad had Hep C, she has been tested and negative. - Family History Known Family History: Negative: Cardiac Disease, Hypertension, Diabetes - Social History Alcohol Use: None Substance Use Type: None Smoking Status (MU): Light Every Day Tobacco Smoker Type: Cigarettes Amount Used/How Often: 1/day Length of Time of Smoking/Using Tobacco: 15 YEARS Have You Smoked in the Last Year: Yes Household Exposure Type: Cigarettes - Immunization History Most Recent Influenza Vaccination: fall 2017 Most Recent Tetanus Shot: UTD Most Recent Pneumonia Vaccination: none Review of Systems All Other Systems Reviewed And Are Negative: Yes Constitutional: Positive: Negative Skin: Positive: Rash Eyes: Positive: Negative ENT: Positive: Negative Respiratory: Positive: Negative Cardiovascular: Positive: Negative Gastrointestinal: Positive: Negative Genitourinary: Positive: Negative Motor: Positive: Negative Neurovascular: Positive: Negative Musculoskeletal: Positive: Negative Neurological: Positive: Negative Psychological: Positive: Negative Physical Exam Triage Information Reviewed: Yes Appearance: Well-Appearing, No Pain Distress, Well-Nourished Vital Signs: Initial Vital Signs Temp 97.4 F 12/26/18 20:14 Pulse 74 07/08/19 20:14 Resp 14 12/26/18 20:14 BP 104/70 12/26/18 20:14 Pulse Ox 99 12/26/18 20:14 Vital Signs Reviewed: Yes Eyes: Positive: Conjunctiva Clear ENT: Positive: Hearing grossly normal. Negative: Nasal congestion, Nasal drainage Neck: Positive: Supple, Nontender, No Lymphadenopathy Respiratory: Positive: Lungs clear, Normal breath sounds, No respiratory distress Cardiovascular: Positive: RRR, No Murmur Musculoskeletal: Positive: ROM Intact, No Edema Neurological Exam: Normal Neurological: Positive: Alert Psychological Exam: Normal Skin Exam: Other - rash c/w EM on right calf 6x8cm Course/Dx - Diagnoses Provider Diagnosis: Erythema migrans (Lyme disease) Discharge - Sign-Out/Discharge Documenting (check all that apply): Patient Departure All imaging exams completed and their final reports reviewed: No Studies - Discharge Plan Condition: Stable Disposition: HOME Prescriptions: Amoxicillin PO (*) [Amoxicillin 500 MG CAP*] 500 mg PO TID #42 cap Patient Education Materials: Lyme Disease (ED) Referrals: [facility] [place] [facility] [Outside] - 2 Weeks (2) Additional Instructions: your rash is worrisome for erythema migrans which is an early sign of lyme disease - Billing Disposition and Condition Condition: STABLE Disposition: Home
== END 2018-12-26 20:56 | disposition home or self-care (01) ==
LOC: UCEAST 19:57
DX: O90.89 Other complications of the puerperium, not elsewhere classified (principal); A69.20 Lyme disease, unspecified; O99.335 Smoking (tobacco) complicating the puerperium; Z88.2 Allergy status to sulfonamides
CPT/HCPCS: 99212; A9270-GY; G0463

== ENCOUNTER 2019-02-25 19:00 | Emergency (ER) | payer OTHER ==
--- NOTE | 2019-02-25 19:17 | ED ---
HPI Chest Pain - HPI Summary HPI Summary: This patient is a 34 year old F presenting to [facility] by EMS with a chief complaint of chest pain since prior to arrival. 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 Pt took Tums twice, with no alleviation of symptoms. She had sharp pains in central chest radiating to the epigastric region. Then, pt sat down as she felt faint. Patient reports diaphoresis. Patient denies vomiting, and SOB. Her vitals where taken at [place] and EMS was called. Pt is currently feeling okay. Pt has a PMHx of heart murmur while . Pt gave on 11/30/18. She also had to come to the hospital during due to syncope. Pt does not take any medications. Pt has had EKGs done with normal results. Pt does not do drugs, occasionally drinks alcohol, and smokes. - History of Current Complaint Chief Complaint: EDChestPainROMI Time Seen by Provider: 02/25/19 19:05 Hx Obtained From: Patient Hx Last Menstrual Period: 3 weeks Onset/Duration: Started Minutes Ago, Resolved Timing: Constant, Lasting Minutes Initial Severity: Moderate Current Severity: None Pain Intensity: 0 Pain Scale Used: 0-10 Numeric Chest Pain Location: Mid Sternal Chest Pain Radiates: Yes Chest Pain Radiates To:: Epigastric Character: Burning, Sharp/Stabbing Aggravating Factor(s): Nothing Alleviating Factor(s): Nothing Associated Signs and Symptoms: Positive: Chest Pain, Diaphoresis. Negative: Shortness of Breath, Vomiting - Allergy/Home Medications Allergies/Adverse Reactions: Allergies Allergy/AdvReac Type Severity Reaction Status Date / Time ciprofloxacin [From Cipro] Allergy trouble Verified 12/26/18 20:18 breathing sulfamethoxazole Allergy anaph Verified 12/26/18 20:18 [From Bactrim] trimethoprim [From Bactrim] Allergy anaph Verified 12/26/18 20:18 Home Medications: Home Medications NK [No Home Medications Reported] 02/25/19 [History Confirmed 02/25/19] PMH/Surg Hx/FS Hx/Imm Hx Endocrine/Hematology History: Denies: Hx Anticoagulant Therapy, Hx Diabetes, Hx Thyroid Disease Cardiovascular History: Denies: Hx Hypertension, Hx Myocardial Infarction Respiratory History: Denies: Hx Asthma, Hx Chronic Obstructive Pulmonary Disease (COPD) GI History: Denies: Hx Ulcer - Surgical History Surgery Procedure, Year, and Place: TOOTH EXTRACTION - Immunization History Date of Tetanus Vaccine: Unknown Infectious Disease History: Reports: Hx Clostridium Difficile - x2, 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 Denies: Hx Hepatitis, Hx Human Immunodeficiency Virus (HIV), Hx Shingles, Hx Tuberculosis, Hx Known/Suspected VRE, Hx Known/Suspected VRSA, History Other Infectious Disease - Family History Known Family History: Negative: Cardiac Disease, Hypertension, Diabetes - Social History Occupation: Employed Full-time Lives: With Family Alcohol Use: None Substance Use Type: Reports: None Smoking Status (MU): Light Every Day Tobacco Smoker Type: Cigarettes Amount Used/How Often: 1/day Length of Time of Smoking/Using Tobacco: 15 YEARS Have You Smoked in the Last Year: Yes Review of Systems Positive: Skin Diaphoresis Positive: Chest Pain Negative: Shortness Of Breath Negative: Vomiting All Other Systems Reviewed And Are Negative: Yes Physical Exam - Summary Physical Exam Summary: Appearance: Well-appearing, Well-nourished, lying in bed comfortably Skin: Warm, dry, no obvious rash Eyes: sclera anicteric, no conjunctival pallor ENT: mucous membranes moist, pharynx appears normal Neck: Supple, nontender Respiratory: Clear to auscultation, no signs of respiratory distress Cardiovascular: Normal S1, S2. No murmurs. Normal distal pulses in tibial and radial bilaterally. Abdomen: Soft, nontender, normal active bowel sounds present Musculoskeletal: Normal, Strength/ROM Intact Neurological: A&Ox3, awake and alert, mentation is normal, speech is fluent and appropriate Psychiatric: affect is normal, does not appear anxious or depressed Triage Information Reviewed: Yes Vital Signs On Initial Exam: Initial Vital Signs Temp 98.2 F 02/25/19 19:09 Pulse 81 02/25/19 19:09 Resp 16 02/25/19 19:09 BP 116/80 02/25/19 19:09 Pulse Ox 98 02/25/19 19:09 Vital Signs Reviewed: Yes Diagnostics - Laboratory Result Diagrams: 02/25/19 19:25 02/25/19 19:25 Lab Statement: Any lab studies that have been ordered have been reviewed, and results considered in the medical decision making process. - Radiology CXR Radiology Interpretation Completed By: ED Physician Summary of Radiographic Findings: CXR reveals, per ED physician, no acute processes. Pending official radiology report. - EKG 1914 Cardiac Rate: NL - 77 bpm EKG Rhythm: Sinus Rhythm Summary of EKG Findings: An EKG at 19:15 reveals NSR at 77 BPM, P waves, QRS complex, and T waves are within normal limits, T waves and intervals are normal , no ischemic changes. This is a normal EKG. Re-Evaluation - Re-Evaluation First Eval Re-Evaluation Time: 20:34 Comment: Pt would like to leave as she has children at home. Chest Pain Course/Dx - Course Course Of Treatment: 34 y/o woman with transient chest pain, felt to be very atypical for anginal pain. It passed fairly quickly. She is PERC negative and has a HEART score of 1 based on h/o smoking. Initially 2 troponins ordered, but patient is reluctant to stay and given the extremely low likelihood of ACS here I think it is safe for her to be discharged at this point. This patient is presenting to [facility] by EMS with a chief complaint of chest pain since prior to arrival. 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 Pt took Tums twice, with no alleviation of symptoms. She had sharp pains in central chest radiating to the epigastric region. Then, pt sat down as she felt faint. Patient reports diaphoresis. Patient denies vomiting, and SOB. Her vitals where taken at [place] and EMS was called. Pt is currently feeling okay. Physical exam findings are nml. Blood work obtained. Troponin at 19:25 is 0.0. Potassium is 3.4, and Glucose is 116. An EKG at 19:15 reveals NSR at 77 BPM , P waves, QRS complex, and T waves are within normal limits, T waves and intervals are normal, no ischemic changes. This is a normal EKG. CXR reveals, per ED physician, no acute processes. Patient will be discharged with follow up from PCP. The patient is agreeable with this plan. - Diagnoses Provider Diagnoses: Chest pain Discharge ED - Sign-Out/Discharge Documenting (check all that apply): Patient Departure - Discharge Patient Received Moderate/Deep Sedation with Procedure: No - Discharge Plan Condition: Good Disposition: HOME Patient Education Materials: Chest Pain (ED) Referrals: Care [facility] [Outside] - 1 Week - Billing Disposition and Condition Condition: GOOD Disposition: Home - Attestation Statements Document Initiated by Scribe: Yes Documenting Scribe: Yaneth Hatch Provider For Whom Gerardo is Documenting (Include Credential): Josef Land MD Scribe Attestation: Yaneth Lai scribed for Josef Land MD on 02/26/19 at 0512. Scribe Documentation Reviewed: Yes Provider Attestation: The documentation as recorded by the Yaneth omalley accurately reflects the service I personally performed and the decisions made by Josef ziegler MD Status of Scribe Document: Viewed
[2019-02-25 19:31] LABS: ABS Eosinophils 0.1 10^3/ul (0-0.6); ABS Lymphocytes 1.2 10^3/ul (1.0-4.8); ABS Monocytes 0.4 10^3/ul (0-0.8); ABS Neutrophils 3.9 10^3/ul (1.5-7.7); Eosinophil % 1.7 %; Hematocrit 41 % (35-47); Hemoglobin 13.8 g/dL (12.0-16.0); Lymphocyte % 22.1 %; Mean Corpuscular HGB Conc 34 g/dL (31-36); Mean Corpuscular Hemoglobin 29 pg (27-31); Mean Corpuscular Volume 85 fL (80-97); Nucleated Red Blood Cells % 0.1; Platelet Count 235 10^3/uL (150-450); Red Blood Count 4.79 10^6 /uL (3.70-4.87); Red Cell Distribution Width 15 % (10-15); White Blood Count 5.6 10^3/uL (3.5-10.8)
--- OUTSIDE RECORDS SUMMARY | 2019-02-25 19:31 | XMS REPORT | Continuity of Care Document ---
:1985 External Reference #:[id number] Author Name Corwin Holder M.D. (transmitted by agent of provider Leigh Mccall) Address [address] [facility] [facility] [address] [place] [address] Problems Description No Information Available Social History Type Date Description Comments Sex Unknown ETOH Use Rarely consumes alcohol Recreational Drug Use Denies Drug Use Tobacco Use Start: Unknown End: Patient is a former smoker Unknown Smoking Status Reviewed: 02/22/19 Patient is a former smoker Exercise Type/Frequency Does not exercise Allergies, Adverse Reactions, Alerts Active Allergies Reaction Severity Comments Date Sulfa Antibiotics Hives, Nausea 07/07/2018 Bactrim Hives and Nausea 07/07/2018 Medications Active Medications SIG Qnty Indications Ordering Provider Date Compression Stockings - ble 2units R55 Joanne Kramer NP 09/09/2018 swelling/edema- Misc below the knee Vitamin 1 cap by mouth Unknown daily Capsules Fish Oil 1 tab by mouth Unknown 600mg Capsules every morning Magnesium Oxide -MG 1 by mouth every Unknown Supplement day 400mg Capsules Ferrous Sulfate 1 tablets by Unknown mouth daily 325(65Fe) mg Tablets Control 1 po qd Unknown Immunizations Description No Information Available Vital Signs Date Vital Result Comment 02/22/2019 9:39am Height 61 inches 5'1" Weight 114.50 lb Heart Rate 68 /min BP Systolic Sitting 94 mmHg LA, reg BP Diastolic Sitting 64 mmHg LA, reg BP Systolic Standing 90 mmHg LA< reg BP Diastolic Standing 60 mmHg LA< reg BMI (Body Mass Index) 21.6 kg/m2 Ejection Fraction 50%-55% ) 07/22/18 echo 10/27/2018 12:49pm Height 61 inches 5'1" Weight 122.00 lb with shoes Heart Rate 84 /min BP Systolic Sitting 84 mmHg lue reg cuff BP Diastolic Sitting 56 mmHg lue reg cuff BP Systolic Standing 80 mmHg lue reg cuff BP Diastolic Standing 56 mmHg lue reg cuff Respiratory Rate 12 /min BMI (Body Mass Index) 23.0 kg/m2 Ejection Fraction 50-54% echo. 07/22/18 Results Description No Information Available Procedures Date Code Description Status 02/22/2019 37964 EKG Tracing & Interpretation Completed 10/24/2018 25466 EKG Tracing & Interpretation Completed 10/05/2018 31157 EKG Tracing & Interpretation Completed 10/05/2018 47989 EKG Tracing & Interpretation Completed 08/29/2018 08353 Event Monitor/Phys Review/Interp. Completed Medical Devices Description No Information Available Encounters Type Date Location Provider Dx Diagnosis Office Visit 10/27/2018 [facility] Corwin Yu R42 Dizziness and 1:20p Of Edelmira Holder M.D. giddiness R01.1 Cardiac murmur, unspecified R55 Syncope and collapse Office Visit 09/09/2018 3:30p [facility] Joanne Kramer, R55 Syncope and DIRECTOR OF PHOTOGRAPHY collapse I47.1 Supraventricular tachycardia R01.1 Cardiac murmur, unspecified Assessments Date Code Description Provider 02/22/2019 R01.1 Cardiac murmur, unspecified Corwin Holder M.D. 02/22/2019 R55 Syncope and collapse Corwin Holder M.D. 10/27/2018 R42 Dizziness and giddiness Corwin Holder M.D. 10/27/2018 R01.1 Cardiac murmur, unspecified Corwin Holder M.D. 10/27/2018 R55 Syncope and collapse Corwin Holder M.D. 10/05/2018 R42 Dizziness and giddiness Corwin Holder M.D. 10/05/2018 R42 Dizziness and giddiness Nurse Visit cc 09/09/2018 R55 Syncope and collapse Joanne Kramer NP 09/09/2018 I47.1 Supraventricular tachycardia Joanne Kramer DIRECTOR OF PHOTOGRAPHY 09/09/2018 R01.1 Cardiac murmur, unspecified Joanne Thjerson, DIRECTOR OF PHOTOGRAPHY 08/29/2018 I44.0 Atrioventricular block, first degree Corwin Holder M.D. 08/29/2018 R55 Syncope and collapse Corwin Holder M.D. Plan of Treatment Future Appointment(s):03/09/2019 1:20 pm - [facility] Corwin Holder M.D.R01.1 Cardiac murmur, [id number] Syncope and collapse Functional Status Description No Information Available Mental Status Description No Information Available Referrals Description No Information Available
[2019-02-25 19:48] LABS: ALT 13 U/L (7-52); AST 21 U/L (13-39); Albumin 4.4 g/dL (3.2-5.2); Albumin/Globulin Ratio 1.8 (1-3); Alkaline Phosphatase 62 U/L (34-104); Anion Gap 9 mmol/L (2-11); BUN/Creatinine Ratio 16.8 (8-20); Blood Urea Nitrogen 16 mg/dL (6-24); CO2 Carbon Dioxide 24 mmol/L (22-32); Calcium 9.4 mg/dL (8.6-10.3); Chloride 105 mmol/L (101-111); EGFR African American 80.5 (>60); EGFR Non-African American 66.6 (>60); Globulin 2.5 g/dL (2-4); Glucose 116 mg/dL (70-100); Potassium 3.4 mmol/L (3.5-5.0); Sodium 138 mmol/L (135-145); Total Protein 6.9 g/dL (6.4-8.9)
[2019-02-25 19:55] LABS: HCG Pregnancy < 0.60 mIU/mL
[2019-02-25 21:00] VITALS: BP 143/101
== END 2019-02-25 20:59 | disposition home or self-care (01) ==
LOC: ED 19:00
DX: R07.9 Chest pain, unspecified (principal); F17.210 Nicotine dependence, cigarettes, uncomplicated; Z88.1 Allergy status to other antibiotic agents; Z88.2 Allergy status to sulfonamides
CPT/HCPCS: 36415; 71045; 80053; 84484; 84702; 85025; 93005; 99283

== ENCOUNTER 2019-06-24 18:30 | Emergency (ER) | payer OTHER ==
[2019-06-24 18:42] VITALS: BP 140/90
[2019-06-24 19:55] LABS: Urine Appearance Cloudy; Urine Bilirubin Negative (Negative); Urine Blood Negative (Negative); Urine Color Yellow; Urine Glucose Negative (Negative); Urine Ketones Negative (Negative); Urine Nitrite Negative (Negative); Urine Protein Negative (Negative); Urine Specific Gravity 1.018 (1.010-1.030); Urine Urobilinogen Negative (Negative)
[2019-06-24 20:08] LABS: Urine Bacteria Absent (Absent); Urine Red Blood Cell Absent (Absent); Urine Squamous Epithelial Cell Present (Absent); Urine White Blood Cell 2+(11-20/hpf) (Absent)
== END 2019-06-24 20:46 | disposition left against medical advice (07) ==
LOC: ED 18:30
DX: R07.9 Chest pain, unspecified (principal); Z53.21 Procedure and treatment not carried out due to patient leaving prior to being seen by health care provider
CPT/HCPCS: 81003; 81015; 87086; 93005; 99282

== ENCOUNTER 2019-08-31 13:07 | Emergency (ER) | payer OTHER ==
[2019-08-31 16:53] VITALS: BP 120/76
--- NOTE | 2019-08-31 16:58 | UC ---
Eye Complaint HPI - HPI Summary HPI Summary: 34-year-old female presenting with right eye redness and discomfort 2 days. States discomfort is like itching. Notes mild crusting in the morning. Denies pain. Denies pain with eye movement. Denies left eye symptoms. Denies vision changes and photophobia. Denies foreign body sensation. Denies recent URI symptoms. 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 Denies contact lens use. - History of Current Complaint Chief Complaint: UCEye Stated Complaint: EYE COMPLAINT Hx Obtained From: Patient Hx Last Menstrual Period: 3 weeks Pain Intensity: 0 - Allergies/Home Medications Allergies/Adverse Reactions: Allergies Allergy/AdvReac Type Severity Reaction Status Date / Time ciprofloxacin [From Cipro] Allergy trouble Verified 08/31/19 16:54 breathing sulfamethoxazole Allergy anaph Verified 08/31/19 16:54 [From Bactrim] trimethoprim [From Bactrim] Allergy anaph Verified 08/31/19 16:54 Home Medications: Home Medications Erythromycin OPHTH.OINT* [Ilotycin OPHTH.OINT*] 1 applic RIGHT EYE BEDTIME 7 Days #1 ophth.oint 08/31/19 [Rx] PMH/Surg Hx/FS Hx/Imm Hx Other History Of: Negative For: Anticoagulant Therapy - Surgical History Surgical History: Yes Surgery Procedure, Year, and Place: TOOTH EXTRACTION Other Surgical History: Dad had Hep C, she has been tested and negative. - Family History Known Family History: Negative: Cardiac Disease, Hypertension, Diabetes - Social History Alcohol Use: None Substance Use Type: None Smoking Status (MU): Light Every Day Tobacco Smoker Type: Cigarettes Amount Used/How Often: 1/day Length of Time of Smoking/Using Tobacco: 15 YEARS Have You Smoked in the Last Year: Yes Household Exposure Type: Cigarettes - Immunization History Most Recent Influenza Vaccination: fall 2017 Most Recent Tetanus Shot: UTD Most Recent Pneumonia Vaccination: none Review of Systems All Other Systems Reviewed And Are Negative: Yes Constitutional: Positive: Negative Skin: Positive: Negative Eyes: Positive: Drainage - morning crusting, Eye Redness - right. Negative: Blurred Vision, Photophobia ENT: Positive: Negative Respiratory: Positive: Negative Cardiovascular: Positive: Negative Gastrointestinal: Positive: Negative Neurological/Mental Status: Positive: Negative Physical Exam Triage Information Reviewed: Yes Appearance: Well-Appearing Vital Signs: Initial Vital Signs Temp 98.7 F 08/31/19 16:48 Pulse 90 08/31/19 16:48 Resp 16 08/31/19 16:48 BP 120/76 08/31/19 16:48 Pulse Ox 100 08/31/19 16:48 Vital Signs Reviewed: Yes Eyes: Positive: Conjunctiva Inflamed - right, Other: - PERRLA. EOM intact and full. Negative: Discharge ENT Exam: Normal ENT: Positive: Normal ENT inspection Neck exam: Normal Neck: Positive: Supple, No Lymphadenopathy Respiratory: Positive: No respiratory distress, No accessory muscle use Cardiovascular Exam: Other - Skin reflects adequate perfusion Neurological: Positive: Alert Psychological: Positive: Age Appropriate Behavior Skin Exam: Normal - No erythema or ecchymosis Eye Complaint Course/Dx - Course Course Of Treatment: Discussed viral versus bacterial conjunctivitis with the patient. 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 I prescribed erythromycin ointment as constipation has allergies to trimethoprim and ciprofloxacin. Instructed to follow up with PCP if symptoms do not improve within 10 days. Patient voiced understanding and agreed with the treatment plan. - Differential Dx/Diagnosis Provider Diagnosis: Acute conjunctivitis, right eye Discharge ED - Sign-Out/Discharge Documenting (check all that apply): Patient Departure All imaging exams completed and their final reports reviewed: No Studies - Discharge Plan Condition: Stable Disposition: HOME Prescriptions: Erythromycin OPHTH.OINT* [Ilotycin OPHTH.OINT*] 1 applic RIGHT EYE BEDTIME 7 Days #1 ophth.oint Patient Education Materials: Conjunctivitis (ED) Forms: *Work Release Referrals: [facility] [Outside] - If Needed Additional Instructions: Use antibiotic ointment as prescribed. Wash hands and surfaces at home. Follow up with primary care provider or the [facility] if symptoms worsen or do not improve within 7-10 days. - Billing Disposition and Condition Condition: STABLE Disposition: Home
== END 2019-08-31 17:35 | disposition home or self-care (01) ==
LOC: UCEAST 13:07
DX: H10.31 Unspecified acute conjunctivitis, right eye (principal); F17.210 Nicotine dependence, cigarettes, uncomplicated; Z88.2 Allergy status to sulfonamides; Z88.1 Allergy status to other antibiotic agents
CPT/HCPCS: 99212; G0463

== ENCOUNTER 2019-10-12 17:05 | Observation (INO) | payer OTHER ==
[2019-10-12] MEDS ORDERED: Pantoprazole IV* 40 MG IV ONE (17:41)
[2019-10-12] MEDS ORDERED: Ketorolac INJ* 30 MG/ML 1 ML VIAL IV PUSH ONE (17:41)
--- NOTE | 2019-10-12 17:43 | ED ---
GI/ HPI - HPI Summary HPI Summary: 34 year old female presents with abdominal pain for the past 30 mins. pain started in her chest and moved to her upper abdomen. States she's had this pain before. States she does have a history of murmur and hypotension when she was . She states pain is sharp in nature. She denies any nausea vomiting. She has history of acid reflux it feels similar. She denies any diarrhea or constipation. pain is worst when takes deep breath. no sob or palpitations. no cough, fever, sore throat. did not take anything for symptoms. nothing makes it better worst. she does smoke. no drug use. she does drink alcohol. no family history of cardiac disease or PE. - History of Current Complaint Chief Complaint: EDAbdPain Time Seen by Provider: 10/12/19 17:29 Stated Complaint: UPPER ABD PAIN PER PT Hx Last Menstrual Period: 3 weeks Pain Intensity: 8 - Allergy/Home Medications Allergies/Adverse Reactions: Allergies Allergy/AdvReac Type Severity Reaction Status Date / Time ciprofloxacin [From Cipro] Allergy trouble Verified 10/12/19 17:09 breathing sulfamethoxazole Allergy anaph Verified 10/12/19 17:09 [From Bactrim] trimethoprim [From Bactrim] Allergy anaph Verified 10/12/19 17:09 Home Medications: Home Medications Erythromycin OPHTH.OINT* [Ilotycin OPHTH.OINT*] 1 applic RIGHT EYE BEDTIME 7 Days #1 ophth.oint 08/31/19 [Rx Confirmed 10/12/19] PMH/Surg Hx/FS Hx/Imm Hx Endocrine/Hematology History: Denies: Hx Anticoagulant Therapy, Hx Diabetes, Hx Thyroid Disease Cardiovascular History: Denies: Hx Hypertension, Hx Myocardial Infarction Respiratory History: Denies: Hx Asthma, Hx Chronic Obstructive Pulmonary Disease (COPD) GI History: Denies: Hx Ulcer - Surgical History Surgery Procedure, Year, and Place: TOOTH EXTRACTION - Immunization History Date of Tetanus Vaccine: Unknown Infectious Disease History: Yes Infectious Disease History: Reports: Hx Clostridium Difficile - x2, 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 Denies: Hx Hepatitis, Hx Human Immunodeficiency Virus (HIV), Hx Shingles, Hx Tuberculosis, Hx Known/Suspected VRE, Hx Known/Suspected VRSA, History Other Infectious Disease, Traveled Outside the [place] in Last 30 Days - Family History Known Family History: Negative: Cardiac Disease, Hypertension, Diabetes - Social History Alcohol Use: None Substance Use Type: Reports: None Smoking Status (MU): Light Every Day Tobacco Smoker Type: Cigarettes Amount Used/How Often: 1/day Length of Time of Smoking/Using Tobacco: 15 YEARS Have You Smoked in the Last Year: Yes Review of Systems Negative: Fever Positive: Chest Pain Negative: Shortness Of Breath, Cough Positive: Abdominal Pain. Negative: Vomiting, Diarrhea, Nausea All Other Systems Reviewed And Are Negative: Yes Physical Exam Triage Information Reviewed: Yes Vital Signs On Initial Exam: Initial Vitals Temp Pulse Resp BP Pulse Ox 96.9 F 79 19 135/83 98 10/12/19 17:06 10/12/19 17:06 10/12/19 17:06 10/12/19 17:06 10/12/19 17:06 Vital Signs Reviewed: Yes Appearance: Positive: Well-Appearing Skin: Positive: Warm, Dry Head/Face: Positive: Normal Head/Face Inspection Eyes: Positive: Normal, Conjunctiva Clear ENT: Positive: Pharynx normal Respiratory/Lung Sounds: Positive: Clear to Auscultation, Breath Sounds Present , Other - reproducible chest pain Cardiovascular: Positive: Normal, RRR Abdomen Description: Positive: Soft, Other: - tenderness in RUQ and LUQ Bowel Sounds: Positive: Present Musculoskeletal: Positive: Normal Neurological: Positive: Normal Psychiatric: Positive: Normal Diagnostics - Vital Signs Vital Signs Temp Pulse Resp BP Pulse Ox 10/12/19 17:06 96.9 F 79 19 135/83 98 - Laboratory Result Diagrams: 10/12/19 18:11 10/12/19 20:04 Lab Statement: Any lab studies that have been ordered have been reviewed, and results considered in the medical decision making process. - Ultrasound No standard instances Ultrasound Interpretation Completed By: Radiologist Summary of Ultrasound Findings: IMPRESSION: There is gallbladder sludge and fine layering calculi consistent with cholelithiasis with no abnormal gallbladder wall thickening but positive sonographic Alfredo sign, therefore suspicious for acute cholecystitis. - EKG No standard instances Cardiac Rate: NL EKG Rhythm: Sinus Rhythm EKG Comparison: No Significant Change Summary of EKG Findings: sinus rhythm Re-Evaluation - Re-Evaluation First Eval Re-Evaluation Time: 19:18 Change: Improved Comment: feeling better Second Eval Re-Evaluation Time: 20:51 Comment: pain is 2 out of 10 GIGU Course/Dx - Course Course Of Treatment: 34 year old female presents with abdominal pain for the past 30 mins. pain started in her chest and moved to her upper abdomen. States she's had this pain before. States she does have a history of murmur and hypotension when she was . She states pain is sharp in nature. She denies any nausea vomiting. She has history of acid reflux it feels similar. She denies any diarrhea or constipation. pain is worst when takes deep breath. no sob or palpitations. no cough, fever, sore throat. did not take anything for symptoms. nothing makes it better worst. she does smoke. no drug use. no family history of cardiac disease or PE. on exam reproducible chest pain, tenderness in RUQ and LUQ. ekg sinus rhythm. low suspicion for PE. heart score 1. chest xray normal. wbc normal. crp normal. bilirubin 1.5. ast 160. alt 34. lipase normal. d-dimer neg. troponin zero. gallbadder ultrasound shows stone with sludge. discussed with dr pfeiffer who says to repeat lfts to see if stable. lfts increased. discussed with dr buchanan as patient pain improved before pain meds likely passed stone already so can go home or can be admitted for lft trending and if they increase tomorrow then would be MRCP. discussed with patient and she would like to be admitted. discsussed with dr mak who agrees to admit. - Diagnoses Differential Diagnoses - Female: Gall Bladder Disease, Gastritis, Gerd, Other - chest wall Provider Diagnoses: Cholelithiasis, Elevated liver enzymes - Critical Care Time Critical Care Statement: Critical care time is provided exclusive of any time spent performing procedures. Discharge ED - Sign-Out/Discharge Documenting (check all that apply): Patient Departure - Discharge Plan Condition: Stable Disposition: ADMITTED TO [facility] - Billing Disposition and Condition Condition: STABLE Disposition: Admitted to [facility]
[2019-10-12 18:28] LABS: ABS Eosinophils 0.1 10^3/ul (0-0.6); ABS Lymphocytes 1.2 10^3/ul (1.0-4.8); ABS Monocytes 0.5 10^3/ul (0-0.8); ABS Neutrophils 7.5 10^3/ul (1.5-7.7); Hematocrit 41 % (35-47); Hemoglobin 14.7 g/dL (12.0-16.0); Lymphocyte % 12.5 %; Mean Corpuscular HGB Conc 36 g/dL (31-36); Mean Corpuscular Hemoglobin 32 pg (27-31); Mean Corpuscular Volume 90 fL (80-97); Mean Platelet Volume 8.5 fL (7.4-10.4); Platelet Count 223 10^3/uL (150-450); Red Blood Count 4.58 10^6 /uL (3.70-4.87); Red Cell Distribution Width 14 % (10-15); White Blood Count 9.3 10^3/uL (3.5-10.8)
[2019-10-12 18:39] LABS: ALT 34 U/L (7-52); AST 160 U/L (13-39); Albumin 4.8 g/dL (3.2-5.2); Albumin/Globulin Ratio 1.7 (1-3); Alkaline Phosphatase 116 U/L (34-104); Amylase 27 U/L (29-103); Anion Gap 8 mmol/L (2-11); BUN/Creatinine Ratio 14.5 (8-20); Blood Urea Nitrogen 11 mg/dL (6-24); C Reactive Protein 1.11 mg/L (<8.01); CO2 Carbon Dioxide 31 mmol/L (22-32); Chloride 100 mmol/L (101-111); EGFR African American 104.2 (>60); EGFR Non-African American 86.1 (>60); Globulin 2.8 g/dL (2-4); Glucose 106 mg/dL (70-100); Potassium 3.4 mmol/L (3.5-5.0); Sodium 139 mmol/L (135-145); Total Protein 7.6 g/dL (6.4-8.9)
[2019-10-12 18:44] LABS: HCG Pregnancy < 0.60 mIU/mL
[2019-10-12 20:29] LABS: Albumin 4.4 g/dL (3.2-5.2); Albumin/Globulin Ratio 1.6 (1-3); BUN/Creatinine Ratio 16.7 (8-20); Calcium 9.8 mg/dL (8.6-10.3); EGFR African American 110.9 (>60); EGFR Non-African American 91.7 (>60); Globulin 2.7 g/dL (2-4); Potassium 3.5 mmol/L (3.5-5.0); Total Bilirubin 2.2 mg/dL (0.2-1.0); Total Protein 7.1 g/dL (6.4-8.9)
[2019-10-12] MEDS ORDERED: Ondansetron INJ* 2 MG/ML VIAL IV PRN (22:23)
[2019-10-12] MEDS ORDERED: Morphine INJ* 2 MG/ML 1 ML SYRINGE (TWO MG - NEW SYRINGE VERSION) IV PRN (22:23)
--- NOTE | 2019-10-13 06:18 | HP ---
HISTORY AND PHYSICAL: DATE OF ADMISSION: 10/12/19 PRIMARY CARE PROVIDER: None. CHIEF COMPLAINT: Chest and abdominal pain. HISTORY OF PRESENT ILLNESS: Ms. Gonzales is a 34-year-old female with no significant past medical history, who presented to the emergency room with complaints of what she described as initially chest pain in the center of her chest. She states it started at approximately 4:30 p.m. Prior to this beginning, she felt as if she had heartburn all day long. She notes that over the course of the time, the pain traveled down into her abdomen. She had no associated nausea, vomiting, or fever. She had no associated shortness of breath , but she did note that it felt hard to breathe due to pain. She states that currently, the pain is completely resolved. She had something very similar last year and it went away on its own. She states that this episode had lasted much longer than the one last year. She has had no change in the color of her stool or urine. PAST MEDICAL HISTORY: None. PAST SURGICAL HISTORY: Multiple teeth extractions. MEDICATIONS: None. ALLERGIES: CIPRO and BACTRIM. FAMILY HISTORY: Mother is living. She is 64. She had lung cancer, now may have some sort of cancer affecting her spine. Father at the age of 45 of cirrhosis related to hepatitis C. SOCIAL HISTORY: The patient smokes less than half a pack per day and has smoked for 20 years. She does drink alcohol fairly routinely, but not necessarily on a daily basis. She does note that this has increased recently as she has been at home with her children. She denies any recreational drugs. She previously worked at [employer] and at [employer]. She is not . She has 2 children. She indicates that her mother will be her healthcare proxy. REVIEW OF SYSTEMS: A complete 11-point review of systems was obtained. Pertinent positives and negatives are as per HPI, and otherwise negative. PHYSICAL EXAMINATION GENERAL: The patient is a well-developed, thin, young female, sitting up in the bed, in no acute distress. VITAL SIGNS: Blood pressure 106/72, pulse 70, respirations 18, temperature 99.4 , O2 saturation 97% on room air. HEENT: Pupils are equal. Extraocular muscles are intact. Oropharynx is clear. Oral mucosa is moist. The patient wears both upper and lower dentures. NECK: There is no submandibular, cervical, or supraclavicular adenopathy. PULMONARY: Lungs are clear to auscultation bilaterally. CARDIAC: Normal S1 and S2. Regular rate and rhythm. No murmurs. There is no lower extremity edema. ABDOMEN: Bowel sounds are present. Abdomen is soft, nontender, and nondistended. The patient does note that during the gallbladder ultrasound, she had a positive Alfredo sign. This is now resolved. MUSCULOSKELETAL: There is no cyanosis or clubbing of the digits. There is full active range of motion of both lower extremities. NEUROLOGIC: Cranial nerves II through XII are grossly intact. Sensation is intact to light touch throughout. Strength is 5/5 and symmetric in both upper and lower extremities bilaterally. PSYCH: The patient is alert. She is oriented x3. Affect appears appropriate. SKIN: Warm and dry. There are no rashes. The patient does have numerous tattoos. DIAGNOSTIC STUDIES/LAB DATA: Labs: WBC is 9.3, hemoglobin is 14.7, hematocrit is 41, platelets is 223. D-dimer is less than 200. Sodium is 139, potassium is 3.5, chloride is 101, CO2 of 29, BUN 12, creatinine of 0.72, glucose 99, lactic acid is 0.6, calcium 9.8. Bilirubin is 2.2, AST is 383, ALT is 85, alkaline phosphatase 155. Troponin 0 x2. CRP is 1.11. Albumin is 4.4. Amylase is 27, lipase is 26. Of note, bilirubin is up to 2.2 from 1.5 just 2 hours prior. AST is up to 383 from 160. ALT is up to 85 from 34. EKG reveals normal sinus rhythm without any acute ST-T wave abnormalities. Chest x- ray to my interpretation is clear and without evidence of infiltrate. Gallbladder ultrasound reveals gallbladder sludge and fine layering calculi consistent with cholelithiasis with no abnormal gallbladder wall thickening, but positive sonographic Alfredo sign, therefore, suspicious for acute cholecystitis. ASSESSMENT AND PLAN: Ms. Gonzales is a 34-year-old female who presents to the emergency room with what she describes as initially chest pain traveling down to her abdomen, now completely resolved in the setting of having gallbladder sludge and cholelithiasis. 1. Probable choledocholithiasis. At this point, it is suspicious that the patient passed a stone. Her pain has completely resolved. The plan is to admit the patient overnight and recheck labs in the morning. If her bilirubin, AST, ALT, and alkaline phosphatase are improved, it is likely that she passed the stone. If they are higher or essentially stable, the patient should have an MRCP. The patient is NPO at this time. She may benefit from a semi-urgent cholecystectomy if she did in fact pass the stone. At this point, she will have morphine for pain control and Zofran as needed for nausea. 2. DVT prophylaxis: According to the Adult Thrombosis Prophylaxis Risk Factor Assessment Guide, the patient has a total risk factor score of 0 making her low risk. Ambulation will be utilized as DVT prophylaxis. 3. Code status is full. TIME SPENT: Fifty-five minutes was spent admitting this patient. [id number]/[facility] #: [id number] TOÑA
[2019-10-13 06:55] LABS: Albumin 4.1 g/dL (3.2-5.2); Albumin/Globulin Ratio 1.6 (1-3); BUN/Creatinine Ratio 17.9 (8-20); Calcium 9.5 mg/dL (8.6-10.3); EGFR African American 120.5 (>60); EGFR Non-African American 99.6 (>60); Globulin 2.5 g/dL (2-4); Total Bilirubin 4.1 mg/dL (0.2-1.0); Total Protein 6.6 g/dL (6.4-8.9)
--- NOTE | 2019-10-13 09:21 | PN ---
Subjective Date of Service: 10/13/19 Interval History: Alert and oriented x 3. Pt reports that she is currently without pain or discomfort. Pt reports that she has not had a BM today but has urinated. Urine is reported very dark in color, denies dysuria. Pt denies nausea or vomiting. Family History: Unchanged from Admission Social History: Unchanged from Admission Past Medical History: Unchanged from Admission Objective Active Medications: Morphine Sulfate (Morphine Inj (Syringe))*) 2 mg IV Q4H PRN PRN Reason: PAIN - SEVERE Ondansetron HCl (Zofran Inj*) 4 mg IV Q6H PRN PRN Reason: NAUSEA Vital Signs - 8 hr 10/13/19 10/13/19 03:31 07:11 Temperature 97.6 F 98.0 F Pulse Rate 57 69 Respiratory 16 12 Rate Blood Pressure 98/66 119/76 (mmHg) O2 Sat by Pulse 98 98 Oximetry Oxygen Devices in Use Now: None Appearance: Female patient appearing stated age laying in bed watching TV does not appear to be in any distress. Eyes: No Scleral Icterus, PERRLA Ears/Nose/Mouth/Throat: NL Teeth, Lips, Gums, Clear Oropharnyx, Mucous Membranes Moist Neck: NL Appearance and Movements; NL JVP, Trachea Midline Respiratory: Symmetrical Chest Expansion and Respiratory Effort, Clear to Auscultation Cardiovascular: NL Sounds; No Murmurs; No JVD, RRR, No Edema Abdominal: NL Sounds; No Tenderness; No Distention, No Hepatosplenomegaly Lymphatic: No Cervical Adenopathy Skin: No Rash or Ulcers, No Nodules or Sclerosis Neurological: Alert and Oriented x 3, NL Sensation, NL Muscle Strength and Tone Result Diagrams: 10/12/19 18:11 10/13/19 06:15 Assess/Plan/Problems-Billing Assessment: 34 yof patient without significant medical hx pt arrives to ED with C/O resolved abdominal pain - Patient Problems (1) Abdominal pain Current Visit: Yes Comment: -Pain originally started in chest and eventually transferred to abdomen which resolved in ER -10/12 Continues to be without pain -10/12-MRCP shows cholelithiasis without pericholecystic inflammatory change or choledocholithiasis or biliary dilation -Consult to Dr. Pereira and Dr. Ward (2) Elevated liver enzymes Current Visit: Yes Comment: -AST: 275 ALT: 156 ALP: 163 TBili: 4.10 all levels have elevated since arrival except for AST -Will order LFTs for this afternoon, if Tbili continues to elevate pt will stay in hospital. If they are trending down pt may be discharged today and follow up with GI as outpatient. (3) DVT prophylaxis Current Visit: Yes Comment: -Ambulatory (4) Full code status Current Visit: Yes Status and Disposition: Stable
--- NOTE | 2019-10-13 12:12 | CONS ---
CONSULTATION REPORT: DATE OF CONSULTATION: 10/13/19 REQUESTING PHYSICIAN: Dr. Lindsey. INDICATION: Cholelithiasis. NARRATIVE: Ms. Gonzales is a very pleasant 34-year-old female, who came to the emergency room yesterday with chest pain. She stated that on around mid to late afternoon, she developed chest pressure. She was feeling a heartburn-type sensation and then it radiated down in to her right upper quadrant. No nausea and no vomiting at that time. She denied any fevers. Eventually, it went away; however, she came to the emergency room. She has had a similar episode x2 in the past; however, it has been approximately a year. She denied any vomiting. Again, no fevers, no chills, no change in her bowel habits, no blood in her stool. She denies any nonsteroidals. When she presented to the emergency room, the pain was much better. She did have an ultrasound and labs. Labs revealed increased liver function tests and the ultrasound revealed cholelithiasis with a slightly dilated common bile duct. The patient was admitted to the hospital to rule out choledocholithiasis. PAST MEDICAL HISTORY: None. PAST SURGICAL HISTORY: Many teeth pulled. MEDICATIONS: None. ALLERGIES: To BACTRIM and CIPRO. FAMILY HISTORY: Lung cancer, hep C. SOCIAL HISTORY: She continues to smoke, I counseled her against this. Rare alcohol. No IV drugs. REVIEW OF SYSTEMS: Twelve systems were reviewed other than mentioned in the HPI were unremarkable. PHYSICAL EXAM: Temperature is 97.9, blood pressure is 113/77, pulse is 53, respiratory rate of 16, O2 sat is 98%. General: Well-appearing female, in no apparent distress. Alert, oriented, pleasant, fluent. HEENT: Mucous membranes are moist without lesions, ulcers or exudate. Neck is supple. Trachea is midline. Head is normocephalic, atraumatic. Sclerae are slightly icteric. Conjunctivae are not pale. Heart: Regular rate and rhythm. No murmurs, rubs or gallops. Lungs: Clear to auscultation bilaterally. No wheezes , rales or rhonchi. Abdomen: Positive bowel sounds. Soft, nontender, nondistended. No hepatosplenomegaly, masses, rebound or guarding. Skin is warm and dry. DIAGNOSTIC STUDIES/LAB DATA: Of note, white count yesterday at 1800 was 9.3, hemoglobin was normal. INR was not checked. This morning, at 6:15 a.m., she had a bilirubin of 4.1, up from 2.2, up from 1.5. Her AST is decreasing and it went from 383 to 275, ALT went from 85 to 156. Alk phos went from 155 to 163. She did have an MRCP this morning, which revealed cholelithiasis; however, no choledocholithiasis or ductal dilatation. IMPRESSION AND PLAN: A very pleasant 34-year-old female with increased liver function tests and cholelithiasis. MRCP showing no choledocholithiasis, likely she has passed a gallstone yesterday. Her LFTs are still increasing; however, she is pain-free at this time. I would recommend we continue to monitor her. I do not think if there has been any indication for an ERCP at this time. Surgeons have already been called to consider cholecystectomy. We will continue to follow along. [id number]/[facility] #: [id number] [facility]ITAL[facility]
--- NOTE | 2019-10-13 12:20 | PN ---
Progress Note - Progress Note Date of Service: 10/13/19 Note: Surgery Progress Note Please see full dictated H&P by ISRRAEL Barrera. Briefly, patient is a 34 yo F with no PMH who presented to the ED yesterday with complaints of epigastric/ chest pain that began around 4pm. She denied nausea and emesis. She said this happened two times before and she thought it was chest pain. While she was being evaluated the pain resolved on its own and she has no pain now and does not require pain medications. She is very hungry. I reviewed her labs, imaging and clinical information. She is AFVS. WBC normal with no left shift. Her bilirubin has increased to 4.1 today and her LFTs are ekevated. US gallbladder shows gallbladder sludge but no GBW thickening. CBD 4mm. She had an MRCP this morning that did not show pericholecystic inflammation or dilated biliary ducts/CBD or CBD filling defects. On physical exam her abdomen is flat and non tender. I have recommended consulting GI regarding her rising bilirubin and possible choledocholithiasis. At this time I do not think there is much concern for acute cholecystitis, given that she is afebrile, has a normal WBC and no pain or signs of inflammation on imaging. She may have passed stones/sludge. Regarding surgery, we discussed outpatient vs inpatient surgery if she either gets an ERCP or her bilirubins normalize. She prefers outpatient cholecystectomy if possible given the current situation and her need to take care of two young children at home.
[2019-10-13 15:12] VITALS: BP 101/72
[2019-10-13] MEDS ORDERED: KCL 20 MEQ/100 ML IVPREMIX* 20 MEQ/100 ML BAG IV SCH (16:00)
[2019-10-13 16:22] LABS: Albumin 4.3 g/dL (3.2-5.2); Albumin/Globulin Ratio 1.8 (1-3); Globulin 2.4 g/dL (2-4); Indirect Bilirubin 2.6 mg/dL (0.3-1.0); Total Bilirubin 3.2 mg/dL (0.2-1.0); Total Protein 6.7 g/dL (6.4-8.9)
--- NOTE | 2019-10-13 16:31 | CONS ---
SURGICAL CONSULTATION DATE OF CONSULTATION: 10/13/2019. ATTENDING SURGEON: Dr. Tatiana Pereira (ISRRAEL Patel dictating). CHIEF COMPLAINT: Abdominal pain. HISTORY OF PRESENT ILLNESS: This is a generally healthy, 34-year-old female who was experiencing some heartburn during the day on 10/12/2019. She then noted sudden onset of what she describes as central chest pain in the late afternoon/evening hours. This was colicky in nature, but she also found it difficult to breath. She denies any nausea or vomiting, fever or chills. She presented to the ED. Her pain at peak was 10/10, but at present is 0. She does admit to having dark urine. She denies any change in the color or consistency of her stool. There is no known family history of gallbladder disease. She did have one similar prior episode for which she was evaluated in the ED in June. PAST MEDICAL HISTORY: Unremarkable for any chronic or active medical problems. She states that she did have C. diff colitis on two separate episodes, the most recent being about five years ago, both following courses of antibiotics. PAST SURGICAL HISTORY: Her only previous surgery is dental extractions. CURRENT MEDICATIONS: She takes no prescription medications. She does take an occasional cranberry probiotic supplement as well as a daily multivitamin. ALLERGIES: CIPRO (THROAT SWELLING), BACTRIM (GI SIDE EFFECTS AND HIVES). SOCIAL HISTORY: The patient lives at home with her two children. 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 She is a smoker, four to five cigarettes per day for the last 20 years. She is strongly encouraged to quit. She states that she drinks between one to two drinks per day at present, up from her baseline which is less than one drink per day. She denies use of recreational drugs. REVIEW OF SYSTEMS: General: No recent constitutional symptoms or acute illnesses, other than described in the HPI. No recent travel history or sick contacts. HEENT: No problems reported. Cardiovascular: Heart murmur noted during her two pregnancies, otherwise no other significant history. Respiratory : No history of asthma, chronic cough, or shortness of breath. She did have a D-dimer last evening in the ED which was less than 200. GI: As above per HPI, no additions. : No symptoms other than dark urine. EXPRESS MANAGER: She is up-to-date within the past year for Pap and pelvic exam (she is ten months ). Endocrine: No diabetes or thyroid dysfunction. PHYSICAL EXAM: General: Well-nourished, well-developed female in no acute distress and in no apparent pain. Moving freely on her bed. Skin: Warm and dry. No suspicious rashes or lesions. Vital Signs: Height 5'1 ", weight 121 pounds. Temperature 97.9 (T-max 99.4), blood pressure 113/77, pulse 56, respirations 16, room air saturation 98 percent. HEENT: Pupils equal and round , reactive. EOM's intact. No conjunctival pallor or scleral icterus. Oropharynx: Teeth in good repair. No intraoral lesions. Mucus membranes moist. Neck: No lymphadenopathy, thyromegaly or masses. Heart: Regular rate and rhythm. No murmur noted. Lungs: Clear to auscultation. No rales or wheezes. Abdomen: Soft. No tenderness elicited on exam. No palpable masses or organomegaly. Negative Alfredo sign. Genitalia: Exam not done. Rectal: Exam not done. Back: No spinous process or CVA Tenderness. Extremities: No edema. Neurological: Grossly intact. DIAGNOSTIC STUDIES/LAB DATA: White blood cell count 9,300, hemoglobin 14.7, normal differential. Chemistries: Electrolytes notable for potassium of 3.0, others normal. Total bilirubin 4.1 (up from 1.5 on initial presentation), the fractionation does show an indirect bilirubin of 3.0 and a direct bilirubin of 1.1. AST is elevated at 275 (up from initial of 160), ALT 156 (up from initial of 34), alkaline phosphatase 163 (down slightly from initial of 116), CRP is normal at 1.1. Amylase and lipase are normal. Beta HCG is less than 0.60. Ultrasound last evening did show gallbladder sludge and fine stones, but without gallbladder wall thickening or pericholecystic fluid. The common bile duct was described as normal, though was reported to be a positive sonographic Alfredo sign. MRCP which was performed today confirmed the presence of gallstones, but without other acute inflammatory changes. There was no evidence of common bile duct stone. IMPRESSION: 1. Abdominal pain, resolved. 2. Cholelithiasis. 3. Elevated liver function test that seems to be [id number] to her clinical presentation for biliary disease. This combined with her elevated indirect bilirubin suggests another potential cause. These findings were discussed with the Hospitalist Service, Ari Miranda NP. She was already seen by Dr. Vinson from GI who did not feel that ERCP was indicated. RECOMMENDATIONS: From a Surgical standpoint, we would be fine with trying to feed the patient and if she tolerated, to consider discharge with close follow- up of her liver function test and nonurgent follow-up with our office for consideration of cholecystectomy. At this point, this would not be needed on an urgent basis. ISRRAEL PATEL [id number]/[facility] #: [id number] [place]
[2019-10-13] MEDS ORDERED: Potassium Chlor TAB* 20 MEQ TAB.ER PO ONE (17:36)
--- NOTE | 2019-10-14 15:11 | DS ---
Amended report to enter cosigning physician. DISCHARGE SUMMARY: DATE OF ADMISSION: 10/12/19 DATE OF DISCHARGE: 10/13/19 PROVIDER: Dontrell Shepard NP. PRIMARY CARE PHYSICIAN: The patient has no primary care at this time. ATTENDING PHYSICIAN WHILE IN THE HOSPITAL: Dr. Eli Shell* (dictated by Dontrell Shepard NP). PRIMARY DIAGNOSIS: 1. Cholelithiasis and sludge. 2. Elevated liver function tests. STUDIES WHILE IN THE HOSPITAL: 1. On 10/12/19, ECG: Normal sinus rhythm, rate of [address] elevations or T- wave inversions. 2. On 10/12/19, chest x-ray: No active cardiopulmonary disease. 3. On 10/12/19, gallbladder ultrasound: There is gallbladder sludge and fine layering calculi consistent with cholelithiasis with no abnormal gallbladder wall thickening for positive sonographic Alfredo sign, therefore suspicious for acute cholecystitis. 4. On 10/13/19, MRCP: Cholelithiasis without appreciable pericholecystic inflammatory change or choledocholithiasis for biliary dilation. HISTORY OF PRESENT ILLNESS AND HOSPITAL COURSE: Ms. Gonzales is a 34-year-old female patient without significant medical history, presented to ER on 10/12/19 with complaints of chest pain that has migrated to right upper quadrant, however , the pain had resolved by admission. The patient denies changes in bowel or urinary habits, and denies abnormalities urine or stool presentation. While in the ER, tests including ECG with normal findings, gallbladder ultrasound suspicious for acute cholecystitis and negative chest x-ray. Aside from imaging studies, abnormal blood work was found including T- bili at 1.5 initially that elevated to 2.2 and as high as 4.1 the morning of 10/13/19. AST was also found as high as 383 as well as ALT elevations to 156. Alk-phos was elevated as high as 163. On the morning of 10/13/19, an MRCP was performed revealing no cholecystic inflammation or biliary dilation. With the constellation of findings, GI and surgery consult was sought. Dr. Vinson did not believe ERCP is warranted at this time, however, continued monitoring would be beneficial as LFTs were trending up. Surgical consult with Dr. Tatiana Pereira and ISRRAEL Patel, suggest a cause other than biliary disease could be the cause of elevated LFTs and surgical intervention is not of great concern presently. However, she could follow up as outpatient in the near future for evaluation of cholecystectomy. Later in the afternoon of 10/13/19, LFTs were reassessed and they did show improvement, T- bili 3.2, indirect T-bili 2.6, AST 126, ALT 132, alk phos 148. Along with continued benign physical exam, stable vital signs, and tolerating oral intake, the patient is considered stable for discharge today with outpatient followup for complaints. PHYSICAL EXAMINATION: On exam, the patient is alert and oriented x4, with no focal neurological deficits. Eyes: EOMs intact. Pupils PERRL. Neck is supple. Chest: Lung sounds are clear throughout all lung layton. Cardiac: Normal S1 and S2 heart sounds with regular rate and rhythm without murmurs, rubs or gallops. Abdomen: Bowel sounds positive x4 quadrants. The patient is absent of tenderness to palpation and negative Alfredo sign presently. Extremities: Full range of motion with 5/5 strength. +2 pulses in all extremities. Physical exam is otherwise benign. Ms. Gonzales is stable for discharge at this time. Most recent vital signs: 98.4 for temp, 62 heart rate, 12 respirations, 98% on room air, 101/72 for blood pressure. DISCHARGE MEDICATIONS: No medications on discharge. DISCHARGE PLAN: Ms. Gonzales will be discharged to home. ACTIVITY: As tolerated. DIET: Low-fat diet. The patient is aware that high-fat content foods could cause irritation of gallbladder and further pain. The patient should follow up with general surgeon, Dr. Pereira, in 1 to 2 weeks. The patient is aware that she should call the office for telemedicine followup for discussion of possible gallbladder surgery. The patient should also follow up with [facility] and expect a phone call from [facility] to establish primary care provider. The patient also discharged with a prescription to have a liver function test recheck on 10/16/19, as an outpatient. The patient is aware that if she develops any severe abdominal pain, nausea, vomiting, fevers, chills, shortness of breath, chest pain, dizziness or any other concerning symptoms, to please return to the ER immediately. DISCHARGE CONDITION: Stable. DISCHARGE DISPOSITION: Home. This is a summarized report of the patient's medical history and hospital admission. For further details, please see the entire medical record. TIME SPENT: Approximately 45 minutes on this discharge. DONTRELL SHEPARD, NEEMA [id number]/[facility] #: [id number] [facility]ITAL[facility]
== END 2019-10-13 18:20 | disposition home or self-care (01) ==
LOC: ED 17:05 → SSU 22:23
PROVIDERS: ADMIT Hospitalist; ATTEND Internal Medicine
DX: K80.20 Calculus of gallbladder without cholecystitis without obstruction (principal); R94.5 Abnormal results of liver function studies; R07.9 Chest pain, unspecified; R10.9 Unspecified abdominal pain; F17.210 Nicotine dependence, cigarettes, uncomplicated; Z88.2 Allergy status to sulfonamides; Z88.8 Allergy status to other drugs, medicaments and biological substances
CPT/HCPCS: 36415; 71045; 74181; 76376; 76705; 80053; 80076; 82150; 82247; 82248; 83605; 83690; 84484; 84702; 85025; 85379; 86140; 93005; 96365; 96375; 99284; A9270-GY; G0378; J1885; J3480